=== PATIENT | female | born 1940 | race Caucasian/White ===

== ENCOUNTER 2020-05-23 09:56 | Observation (INO) | payer OTHER ==
[2020-05-23 12:02] LABS: Absolute Lymphocytes (CBC) 1.4 K/uL (0.7-4.9); Basophils % 1.1 % (0-1.3); Hematocrit 45.8 % (36.0-45.0); Lymphocytes % 27.2 % (15.3-44.8); MPV 10.8 fL (7.6-11.3); RBC Red Blood Cell Count 4.81 M/uL (3.86-4.86)
[2020-05-23 12:11] LABS: Protime INR 1.04
--- NOTE | 2020-05-23 12:23 | RAD REPORT ---
EXAM DESCRIPTION: CT - Chest Angio - 05/23/2020 12:07 pm CLINICAL HISTORY: Chest pain. Dyspnea COMPARISON: Chest Pa And Lat (2 Views) dated 05/20/2020 TECHNIQUE: CT angiogram of the pulmonary arteries was performed with MIP. All CT scans are performed using dose optimization technique as appropriate and may include automated exposure control or mA/KV adjustment according to patient size. FINDINGS: No evidence of pulmonary thromboembolism. Ascending thoracic aorta is dilated to 5 cm, compatible with aneurysm. Contrast opacification of the thoracic aorta is limited. Mild interstitial pulmonary edema suspected. Heart size is moderately prominent. Small bilateral pleural effusion. No concerning bony finding. IMPRESSION: No evidence of pulmonary thromboembolism. Mild to moderate CHF pattern seen. Ascending thoracic aortic aneurysm measuring 5 cm.
[2020-05-23 12:56] LABS: Albumin 3.8 g/dL (3.4-5.0); Bilirubin Direct 0.3 mg/dL (0-0.2); Magnesium 2.3 mg/dL (1.8-2.4); Phosphorus 4.4 mg/dL (2.5-4.9); Potassium 4.4 mmol/L (3.5-5.1); Protein, Total 7.4 g/dL (6.4-8.2); Thyroid Stimulating Hormone 0.863 uIU/mL (0.360-3.740)
[2020-05-23 13:25] LABS: Urine Appearance CLEAR; Urine Bilirubin NEGATIVE (NEG); Urine Blood TRACE (NEG); Urine Color YELLOW; Urine Glucose NEGATIVE (NEG); Urine Protein NEGATIVE (NEG); Urine Specific Gravity 1.015 (1.005-1.030); Urine Urobilinogen 0.2 mg/dL (0.2-1.0)
[2020-05-23 13:31] VITALS: BMI 26.6
[2020-05-23] MEDS: SOTALOL HCL 80 MG TAB PO SCH (13:43)
[2020-05-23 13:52] LABS: Urine Microscopic Reflex ORDER UMIC
[2020-05-23 14:32] LABS: Urine Bacteria 20-50 /HPF (<20); Urine Culture Reflex Order REFLEXED; Urine RBC <5 /HPF (NONE SEEN)
[2020-05-23] MEDS ORDERED: ALPRAZOLAM 0.25 MG TABLET PO ONE (15:32)
[2020-05-23] MEDS ORDERED: ESCITALOPRAM 20 MG TAB PO ONE (15:33)
[2020-05-23] MEDS ORDERED: ALPRAZOLAM 0.25 MG TABLET PO PRN (17:50)
--- NOTE | 2020-05-23 20:19 | CON ---
Date of Consultation: 05/23/2020 Reason For Consultation: Shortness of breath and new-onset atrial fibrillation. History Of Present Illness: An 79-year-old female with no significant cardiac history as per her rep ort, comes in from primary care physician. She was directly admitted due to atrial fibrillation and shortness of breath. She is lately for the past 2 weeks has been short of breath to minimal exertion , has orthopnea, some lower extremity edema. No chest pain. No nausea, vomiting, or diarrhea. They evaluated her by bedside. She appeared anxious and not able to rest well due to her shortness of br eath. There is no chest pain. Past Medical History: Hypertension. Medications: Refer to reconciliation sheet for detailed list. Allergies: NO KNOWN DRUG ALLERGIES. Social History: She does not smoke. Drinks on occasion. Does not use any drugs. Family History: No mention of coronary artery disease or cancer. Review of Systems: All systems reviewed, they were negative except for mentioned in the HPI. Physical Examination: Vital Signs: Revealed temperature is 97.8, heart rate 109, breathing at 17, blood pressure 136/97, s aturating 97% on room air. General: Pleasant elderly female, in no apparent distress. Head and Neck: Pupils are equal, react to light. Intact eye movements. Positive JVD. No cervical lymphadenopathy. Neck: Supple. Thyroid is not enlarged. Lungs: Crackles in both bases. No accessory muscle use or muscle retraction. Heart: Irregular, irregular. No extra sounds. Abdomen: Soft, nontender. Bowel sounds positive. No organomegaly. No masses or hernia. No rigidi ty or rebound. Extremities: There is trace edema. No clubbing, cyanosis. Intact pulses. Skin: No rash. Neurologic: Alert, awake, and oriented x3. No acute process. Investigations: BMP is 3755. TSH is 0.86, creatinine 0.81. CTA of the lungs, no PE, but there is a [id number] CHF. EKG, atrial fibrillation with rate around 110. Assessment And Plan: 1.Atrial fibrillation with rapid ventricular response. Recommend to obtain echocardiogram to evalua te the heart structure and the patient was started on Betapace. Monitor EKG daily to monitor the QT interval and agree with Eliquis for anticoagulation. Further plan and recommendations based on the e cho findings. 2.Shortness of breath, likely due to congestive heart failure. She has signs and symptoms of conges tive heart failure. Obtain an echo. Start her on Lasix 40 mg IV q.12 hours. Monitor BUN, creatinin e, electrolytes, and check 2 sets of cardiac troponins to rule out any acute myocardial injury. 3.Hypertension. Blood pressure is stable. Diurese as above. SR/MODL Voice ID: [id number] Report ID: [id number]
[2020-05-23] MEDS: POTASSIUM CL SA 10 MEQ TAB PO SCH (20:20)
[2020-05-23] MEDS: APIXABAN 5 MG TABLET PO SCH (20:20)
[2020-05-23] MEDS: FUROSEMIDE 40 MG/4 ML VIAL IV SCH (20:21)
[2020-05-23] MEDS ORDERED: PARoxetine HCL 10 MG TAB PO SCH (21:00)
--- NOTE | 2020-05-23 21:23 | P.HP ---
Certification for Inpatient Patient admitted to: Observation With expected LOS: <2 Midnights Practitioner: I am a practitioner with admitting privileges, knowledge of patient current condition, hospital course, and medical plan of care. Services: Services provided to patient in accordance with Admission requirements found in Title 42 Section 412.3 of the Code of Federal Regulations Patient History Date of Service: 05/23/20 Reason for admission: DYSPNEA History of Present Illness: MS. RESENDEZ HAS DYSPNEA FOR TWO WEEKS, FAILED TO RESPOND TO LASIX ORALLY. SHE WAS NOT ABLE TO LAY DOWN TO SLEEP SO I DECIDED TO ADMIT HER FOR CHF, PND AND WAS FOUND TO HAVE A FIB. I STARTED HER ON BETAPACE, STOPPED, ZIAC AND ALSO PUT HER ON ELIQUIS. Allergies No Known Allergies Allergy (Unverified 04/23/13 16:21) Home Medications: ALPRAZolam [Xanax*] 1 tab PO BEDTIME PRN 05/23/20 Furosemide 1 tab PO DAILY 05/23/20 PARoxetine HCL [Paxil*] 1 tab PO BEDTIME 05/23/20 Potassium Chloride 10 meq PO BID 05/23/20 - Past Medical/Surgical History Has patient received pneumonia vaccine in the past: No -: chf -: anxiety - Social History Smoking Status: Never smoker Alcohol use: Yes CD- Drugs: No Caffeine use: Yes Place of Residence: Home Review of Systems 10-point ROS is otherwise unremarkable General: Weakness, Malaise Respiratory: Shortness of Breath Physical Examination - Vital Signs Temperature: 98.1 F Blood Pressure: 128/93 Pulse: 108 Respirations: 19 Pulse Ox (%): 97 - Physical Exam General: Moderate distress HEENT: Atraumatic, PERRLA, Mucous membr. moist/pink, EOMI, Sclerae nonicteric Neck: Supple, 2+ carotid pulse no bruit, No LAD, Without JVD or thyroid abnormality, JVD distended Respiratory: Clear to auscultation bilaterally, Normal air movement Cardiovascular: Irregular heart rate/rhythm Gastrointestinal: Normal bowel sounds, No tenderness Musculoskeletal: No tenderness Integumentary: No rashes Neurological: Normal gait, Normal speech, Normal strength at 5/5 x4 extr, Normal tone, Normal affect Lymphatics: No axilla or inguinal lymphadenopathy - Studies Laboratory Data (last 24 hrs) 05/23/20 15:58: Troponin I 0.10 H 05/23/20 11:53: Sodium 137, Potassium 4.4, BUN 21 H, Creatinine 0.81, Glucose 96, Phosphorus 4.4, Magnesium 2.3, Total Bilirubin 1.0, AST 37, ALT 95 H, Alkaline Phosphatase 107 05/23/20 11:53: PT 12.3, INR 1.04, APTT 31.8 05/23/20 11:53: WBC 5.0, Hgb 15.2 H, Hct 45.8 H, Plt Count 162 Assessment and Plan - Problems (Diagnosis) (1) CHF (congestive heart failure) Current Visit: Yes Status: Chronic Plan: CHF IS RELATED TO AF IB. ECHO IN AM. MAY HAVE NORMAL EF. Qualifiers: Heart failure type: diastolic Heart failure chronicity: unspecified Qualified Code(s): I50.30 - Unspecified diastolic (congestive) heart failure (2) New onset a-fib Current Visit: Yes Status: Acute Plan: ORAL BETAPACE, ELIQUIS BID. CONSULT CARDIOLOGY. ST TEST OUTPATIENT. (3) HTN (hypertension) Current Visit: Yes Status: Acute Plan: SOTALOL AND LASIX SHOULD HELP WITH IT. STOP ZIAC. Qualifiers: Hypertension type: essential hypertension Qualified Code(s): I10 - Essential (primary) hypertension - Advance Directives Does patient have a Living Will: Yes Does patient have a Durable POA for Healthcare: Yes
[2020-05-24 05:38] LABS: Absolute Lymphocytes (CBC) 1.4 K/uL (0.7-4.9); Basophils % 0.9 % (0-1.3); Hematocrit 44.4 % (36.0-45.0); Lymphocytes % 25.8 % (15.3-44.8); MPV 10.4 fL (7.6-11.3); RBC Red Blood Cell Count 4.67 M/uL (3.86-4.86)
[2020-05-24 05:42] LABS: Magnesium 2.3 mg/dL (1.8-2.4)
[2020-05-24] MEDS: SOTALOL HCL 80 MG TAB PO SCH (07:45)
[2020-05-24] MEDS: POTASSIUM CL SA 10 MEQ TAB PO SCH (07:51)
[2020-05-24] MEDS: APIXABAN 5 MG TABLET PO SCH (07:51)
[2020-05-24] MEDS: FUROSEMIDE 40 MG/4 ML VIAL IV SCH (08:19)
--- NOTE | 2020-05-24 08:45 | ECHO ---
HEIGHT: 5 ft 5 in WEIGHT: 160 lb 0 oz DATE OF STUDY: 05/23/[address]: Tony Campos MD 2-DIMENSIONAL: YES M.MODE: YES DOPPLER: YES COLOR FLOW: YES TDS: NO PORTABLE: NO DEFINITY: NO BUBBLE STUDY: NO DIAGNOSIS: DYSPNEA CARDIAC HISTORY: CATHERIZATION: NO SURGERY: NO PROSTHETIC VALVE: NO PACEMAKER: NO MEASUREMENTS (cm) DIASTOLIC (NORMALS) SYSTOLIC (NORMALS) IVSd 0.9 (0.6-1.2) LA Diam 3.9 (1.9-4.0) LVEF 51% LVIDd 3.4 (3.5-5.7) LVIDs 2.5 (2.0-3.5) %FS 25% LVPWd 1.0 (0.6-1.2) Ao Diam (2.0-3.7) 2 DIMENSIONAL ASSESSMENT: RIGHT ATRIUM: ENLARGED LEFT ATRIUM: ENLARGED RIGHT VENTRICLE: NORMAL LEFT VENTRICLE: NORMAL TRICUSPID VALVE: MILD TR MITRAL VALVE: MODERATE MR PULMONIC VALVE: NOT WELL SEEN AORTIC VALVE: NOT WELL SEEN PERICARDIAL EFFUSION: NONE AORTIC ROOT: NOT WELL SEEN LEFT VENTRICULAR WALL MOTION: MILD GLOBAL HYPOKINESIS. DOPPLER/COLOR FLOW: SEE BELOW. COMMENTS: LOW NORMAL LEFT VENTRICULAR EJECTION FRACTION 50-55% WITH MILD GLOBAL HYPOKINESIS. MODERATE MITRAL REGURGITATION. MILD TRICUSPID REGURGITATION. BI ATRIAL ENLARGEMENT. MODERATE PULMONARY HYPERTENSION WITH RIGHT VENTRICULAR SYSTOLIC PRESSURE OF 50-55 mmHg. TECHNOLOGIST: Chiara SLOAN
[2020-05-24] MEDS ORDERED: ESCITALOPRAM 20 MG TAB PO SCH (09:00)
[2020-05-24 11:20] VITALS: O2SAT 94
--- NOTE | 2020-05-24 12:38 | P.DS ---
Admission Date: 05/23/20 Discharge Date: 05/24/20 Disposition: ROUTINE DISCHARGE Discharge Condition: FAIR Reason for Admission: DYSPNEA - Problems (1) CHF (congestive heart failure) Current Visit: Yes Status: Chronic Qualifiers: Heart failure type: diastolic Heart failure chronicity: unspecified Qualified Code(s): I50.30 - Unspecified diastolic (congestive) heart failure (2) New onset a-fib Current Visit: Yes Status: Acute (3) HTN (hypertension) Current Visit: Yes Status: Acute Qualifiers: Hypertension type: essential hypertension Qualified Code(s): I10 - Essential (primary) hypertension Brief History of Present Illness: MS. RESENDEZ HAS DYSPNEA FOR TWO WEEKS, FAILED TO RESPOND TO LASIX ORALLY. SHE WAS NOT ABLE TO LAY DOWN TO SLEEP SO I DECIDED TO ADMIT HER FOR CHF, PND AND WAS FOUND TO HAVE A FIB. I STARTED HER ON BETAPACE, STOPPED, ZIAC AND ALSO PUT HER ON ELIQUIS. Hospital Course: MS. RESENDEZ IS HERE FOR DYSPNEA, WE FOUND HER TO HAVE NEW ONSET A FIB RELATED CHF. SHE DID WELL WITH IV LASIX, BEATAPACE AND ELIQUIS. SHE HAD AN EPISODE OF CONFUSION AT NIGHT, THAT IS NOT USUAL FOR HER. SHE IS VERY EAGER TO GO HOME. WE STOPPED ZIAC. Vital Signs/Physical Exam: Temp Pulse Resp BP Pulse Ox 97.6 F 108 H 20 140/82 93 05/24/20 08:00 05/24/20 08:19 05/24/20 08:00 05/24/20 08:19 05/24/20 08:00 Laboratory Data at Discharge: WBC 5.4 K/uL (4.3-10.9) 05/24/20 04:39 Hgb 14.8 g/dL (12.0-15.0) 05/24/20 04:39 Hct 44.4 % (36.0-45.0) 05/24/20 04:39 Plt Count 150 K/uL (152-406) L 05/24/20 04:39 PT 12.3 SECONDS (9.5-12.5) 05/23/20 11:53 INR 1.04 05/23/20 11:53 APTT 31.8 SECONDS (24.3-36.9) 05/23/20 11:53 Sodium 137 mmol/L (136-145) 05/24/20 04:39 Potassium 4.0 mmol/L (3.5-5.1) 05/24/20 04:39 BUN 20 mg/dL (7-18) H 05/24/20 04:39 Creatinine 0.72 mg/dL (0.55-1.3) 05/24/20 04:39 Glucose 93 mg/dL (74-106) 05/24/20 04:39 Phosphorus 4.4 mg/dL (2.5-4.9) 05/23/20 11:53 Magnesium 2.3 mg/dL (1.8-2.4) 05/24/20 04:39 Total Bilirubin 1.0 mg/dL (0.2-1.0) 05/23/20 11:53 AST 37 U/L (15-37) 05/23/20 11:53 ALT 95 U/L (12-78) H 05/23/20 11:53 Alkaline Phosphatase 107 U/L (45-117) 05/23/20 11:53 Troponin I 0.11 ng/mL (0.0-0.045) H 05/23/20 21:38 Home Medications: ALPRAZolam [Xanax*] 1 tab PO BEDTIME PRN 05/23/20 Furosemide 1 tab PO DAILY 05/23/20 PARoxetine HCL [Paxil*] 1 tab PO BEDTIME 05/23/20 Potassium Chloride 10 meq PO BID 05/23/20 Apixaban [Eliquis] 5 mg PO BID #60 tablet 05/24/20 Sotalol HCl [Betapace*] 80 mg PO BID 6AM 6PM #60 tab 05/24/20 New Medications: Sotalol HCl [Betapace*] 80 mg PO BID 6AM 6PM #60 tab Apixaban [Eliquis] 5 mg PO BID #60 tablet Followup: Jaleel Morrison MD [ACTIVE - CAN ADMIT] - (Dr Morrison's office will call you on Wednesday to set up follow up appointment. ) Tony Campos MD [ACTIVE - CAN ADMIT] - If your Condition Changes
[2020-05-24 13:38] VITALS: BP 134/88; TEMP 98.6
--- NOTE | 2020-05-24 18:15 | EKG ---
Test Date: 2020-05-23 Test Time: 14:42:49 Design Verification Engineer: HAIM MEASUREMENT RESULTS: Intervals: Rate: 101 HI: QRSD: 74 QT: 372 QTc: 482 [place]: P: HI: QRS: 44 T: 16 INTERPRETIVE STATEMENTS: Atrial fibrillation with rapid ventricular response Septal infarct, age undetermined Abnormal ECG Compared to ECG 09/17/2014 08:53:08 Myocardial infarct finding now present Sinus rhythm no longer present Electronically Signed On 05-24-20 18:12:51 CDT by Jaleel Morrison
--- NOTE | 2020-05-24 22:01 | PN ---
Date of Progress Note: 05/24/2020 The patient was seen yesterday by Dr. Castillo, admitted by Dr. Campos. She is 79. She was admitted fo r CHF and atrial fibrillation, rate 109-120. She was placed on sotalol 80 mg b.i.d. She was placed on Eliquis. She started Lasix 40 mg IV b.i.d. This morning, patient has received only 1 dose of sot alol and she remained in atrial fibrillation at a rate of 109, but is completely asymptomatic. She d iuresed really well. She is indicating that she wants to go home. Of note, that yesterday a CT edward ogram of her chest showed a 5 cm thoracic aortic aneurysm, which need to be followed as an outpatient . Echocardiogram is still pending for today. From my standpoint, even if Ms. Simon does not conver t, I would keep her on sotalol 80 b.i.d. and Eliquis and we will plan a cardioversion in about 3 week s on Eliquis. It is unknown when her atrial fibrillation developed. I think she also needs to have an outpatient stress test to rule out coronary artery disease considering her aneurysm, her CHF, and her atrial fibrillation. I will make sure she sees me in the office in the next week or 2 after disc harge. EMANUEL/KAI Voice ID: [id number] Report ID: [id number]
[2020-05-27 18:05] LABS: Vitamin D 1,25-Dihydroxy Total 54 pg/mL (18-72); Vitamin D,1,25-OH2, D2 <8 pg/mL
== END 2020-05-24 13:20 | disposition home or self-care (01) ==
LOC: ERHOLD 09:56 → 4TH 11:08
PROVIDERS: ADMIT Internal Medicine; ATTEND Internal Medicine
DX: I11.0 Hypertensive heart disease with heart failure (principal); I50.30 Unspecified diastolic (congestive) heart failure; I48.20 Chronic atrial fibrillation, unspecified; I71.2 Thoracic aortic aneurysm, without rupture; R06.02 Shortness of breath; Z20.828 Contact with and (suspected) exposure to other viral communicable diseases; F41.9 Anxiety disorder, unspecified; Z79.899 Other long term (current) drug therapy
CPT/HCPCS: 93005; 93306; 87088; 85025 ×2; 87086; 80048 ×2; 36415 ×2; 83735 ×2; 84100; 85610; 85379; 80076; 85730; 82652; 84443; 84484 ×2; 82607; 83880; 71275; U0002; Q9967; G0379; J1940 ×2; G0378 ×3; 81003; 81015

== ENCOUNTER 2020-08-24 01:51 | Inpatient (IN) | payer OTHER ==
[2020-08-24 02:35] LABS: Absolute Lymphocytes (CBC) 1.3 K/uL (0.7-4.9); Hematocrit 43.2 % (36.0-45.0); Lymphocytes % 28.8 % (15.3-44.8); MPV 11.2 fL (7.6-11.3); RBC Red Blood Cell Count 4.46 M/uL (3.86-4.86)
[2020-08-24 02:40] LABS: Protime INR 1.37
[2020-08-24 02:54] LABS: Albumin 3.4 g/dL (3.4-5.0); Bilirubin Direct 0.3 mg/dL (0-0.2); Bilirubin Total 1.2 mg/dL (0.2-1.0); Magnesium 2.2 mg/dL (1.8-2.4); Protein, Total 6.8 g/dL (6.4-8.2); Troponin (Emerg Dept Use Only) 0.17 ng/mL (0.0-0.045)
[2020-08-24] MEDS ORDERED: FUROSEMIDE 40 MG/4 ML VIAL ONE (03:38)
[2020-08-24] MEDS ORDERED: ASPIRIN 81 MG CHEWABLE TABLET ONE (03:38)
[2020-08-24] MEDS ORDERED: METOPROLOL TARTRATE 5 MG/5 ML INJ IV ONE ×2 (04:54→05:21)
--- NOTE | 2020-08-24 05:00 | EDPHYS ---
Physician Documentation [facility] Name: Chata Simon Age: 79 yrs Sex: Female : 1940 Arrival Date: 08/24/2020 Time: 01:54 Bed 2 Private MD: ED Physician Milad Gardner HPI: 08/24 03:02 This 79 yrs old Female presents to ER via EMS with complaints of Breathing mh7 Difficulty. 03:02 The patient has shortness of breath at rest. Onset: The symptoms/episode began/occurred mh7 3 day(s) ago. Duration: The symptoms are intermittent, with no pattern. The patient's shortness of breath is aggravated by supine position, is alleviated by sitting up. Associated signs and symptoms: Pertinent negatives: chest pain, non-productive cough, productive cough, diaphoresis, dizziness, fever, hemoptysis, loss of consciousness, nausea, numbness in extremities, visual changes, vomiting. Severity of symptoms: At their worst the symptoms were moderate last night, in the emergency department the symptoms have improved moderately. Historical: - Allergies: 02:05 No Known Allergies; bb - Home Meds: 02:05 Lasix 20 mg Oral tab 1 tab 2 times per day [Active]; sotolol 80 mg BID [Active]; bb paroxetine HCl 10 mg oral tab 1 tab once daily [Active]; Eliquis 5 mg oral tab 1 tab 2 times per day [Active]; potassium chloride 10 mEq Oral TbER 1 tab once daily [Active]; - PMHx: 02:05 CHF; Atrial Fib; bb - PSHx: 02:05 Unable to obtain; bb - Immunization history:: Adult Immunizations up to date. - Social history:: Smoking status: unknown Patient uses alcohol, occasionally. Patient/guardian denies using street drugs. ROS: 03:02 Constitutional: Negative for fever, chills, and weight loss, Eyes: Negative for injury, mh7 pain, redness, and discharge, ENT: Negative for injury, pain, and discharge, Neck: Negative for injury, pain, and swelling, Cardiovascular: Negative for chest pain, palpitations, and edema, Abdomen/GI: Negative for abdominal pain, nausea, vomiting, diarrhea, and constipation, Back: Negative for injury and pain, : Negative for injury, bleeding, discharge, and swelling, MS/Extremity: Negative for injury and deformity, Skin: Negative for injury, rash, and discoloration, Neuro: Negative for headache, weakness, numbness, tingling, and seizure, Psych: Negative for depression, anxiety, suicide ideation, homicidal ideation, and hallucinations, Allergy/Immunology: Negative for hives, rash, and allergies, Endocrine: Negative for neck swelling, polydipsia, polyuria, polyphagia, and marked weight changes, Hematologic/Lymphatic: Negative for swollen nodes, abnormal bleeding, and unusual bruising. Exam: 03:02 Constitutional: This is a well developed, well nourished patient who is awake, alert, mh7 and in no acute distress. Head/Face: Normocephalic, atraumatic. Eyes: Pupils equal round and reactive to light, extra-ocular motions intact. Lids and lashes normal. Conjunctiva and sclera are non-icteric and not injected. Cornea within normal limits. Periorbital areas with no swelling, redness, or edema. Neck: Trachea midline, no thyromegaly or masses palpated, and no cervical lymphadenopathy. Supple, full range of motion without nuchal rigidity, or vertebral point tenderness. No Meningismus. Chest/axilla: Normal chest wall appearance and motion. Nontender with no deformity. No lesions are appreciated. 03:02 Abdomen/GI: Soft, non-tender, with normal bowel sounds. No distension or tympany. No guarding or rebound. No evidence of tenderness throughout. Back: No spinal tenderness. No costovertebral tenderness. Full range of motion. Skin: Warm, dry with normal turgor. Normal color with no rashes, no lesions, and no evidence of cellulitis. MS/ Extremity: Pulses equal, no cyanosis. Neurovascular intact. Full, normal range of motion. Neuro: Awake and alert, GCS 15, oriented to person, place, time, and situation. Cranial nerves II-XII grossly intact. Motor strength 5/5 in all extremities. Sensory grossly intact. Cerebellar exam normal. Normal gait. Psych: Awake, alert, with orientation to person, place and time. Behavior, mood, and affect are within normal limits. 03:02 Chest/axilla: 03:02 Cardiovascular: Rate: tachycardic, Rhythm: irregularly irregular, Pulses: no pulse deficits are appreciated, Heart sounds: normal, normal S1and S2, Edema: is not appreciated, JVD: is not appreciated. 03:02 Respiratory: the patient does not display signs of respiratory distress, Respirations: normal, Breath sounds: rhonchi, that are moderate, are scattered, Respiratory rate: 19 Vital Signs: 02:00 BP 150 / 122; Pulse 116; Resp 20 S; Temp 97.6(O); Pulse Ox 95% on R/A; Weight 69.4 kg bb (R); Height 5 ft. 5 in. (165.10 cm) (R); 02:29 BP 138 / 116; Pulse 111; Resp 19; Pulse Ox 94% ; rr5 03:50 BP 152 / 120; Pulse 127; Resp 24; Pulse Ox 90% on 2 lpm NC; rr5 04:50 BP 128 / 91; Pulse 106; Resp 22; Pulse Ox 97% on 2 lpm NC; rr5 05:06 BP 144 / 116; Pulse 125; Resp 26; Pulse Ox 100% on 2 lpm NC; rr5 05:30 BP 135 / 108; Pulse 105; Resp 28; Pulse Ox 95% on 3 lpm NC; rr5 06:40 BP 128 / 101; Pulse 110; Resp 24; Pulse Ox 100% on 3 lpm NC; rr5 07:33 BP 132 / 102; Pulse 94 MON; Resp 16; Pulse Ox 99% on 3 lpm NC; sv 02:00 Body Mass Index 25.46 (69.40 kg, 165.10 cm) bb 07:33 A fib sv MDM: 02:08 Patient medically screened. 7 04:43 Differential diagnosis: Anemia Anxiety Reaction asthma, Bronchitis CHF exacerbation, mh7 Chronic Obstructive Pulmonary Disease Myocardial Infarction pneumonia, Pneumothorax pulmonary edema. Data reviewed: vital signs, nurses notes, EMS record, lab test result(s), cardiac enzymes, CBC, electrolytes, urinalysis, EKG, radiologic studies. Data interpreted: Pulse oximetry: on room air is 94 %. Interpretation: hypoxia. Counseling: I had a detailed discussion with the patient and/or guardian regarding: the historical points, exam findings, and any diagnostic results supporting the discharge/admit diagnosis, the presence of at least one elevated blood pressure reading (>120/80) during this emergency department visit, lab results, radiology results, the need for further work-up and treatment in the hospital. Response to treatment: the patient's symptoms have mildly improved after treatment. 08/24 02:07 Order name: Basic Metabolic Panel; Complete Time: 03:13 [facility] 08/24 02:07 Order name: CBC with Diff; Complete Time: 03:13 [facility] 08/24 02:07 Order name: LFT's; Complete Time: 03:13 [facility] 08/24 02:07 Order name: Magnesium; Complete Time: 03:13 [facility] 08/24 02:07 Order name: NT PRO-BNP; Complete Time: 03:13 [facility] 08/24 02:07 Order name: PT-INR; Complete Time: 03:13 [facility] 08/24 02:07 Order name: Troponin (emerg Dept Use Only); Complete Time: 03:13 [facility] 08/24 05:10 Order name: Basic Metabolic Panel [facility] 08/24 05:10 Order name: Basic Metabolic Panel [facility] 08/24 05:10 Order name: NT PRO-BNP [facility] 08/24 05:11 Order name: NT PRO-BNP [facility] 08/24 05:11 Order name: Troponin I [facility] 08/24 05:11 Order name: Troponin I [facility] 08/24 05:11 Order name: Troponin I [facility] 08/24 02:07 Order name: XRAY Chest (1 view) [facility] 08/24 02:07 Order name: EKG; Complete Time: 02:08 [facility] 08/24 02:07 Order name: Cardiac monitoring; Complete Time: 02:28 [facility] 08/24 02:07 Order name: EKG - Nurse/Tech; Complete Time: 02:28 [facility] 08/24 02:07 Order name: IV Saline Lock; Complete Time: 02:28 [facility] 08/24 05:06 Order name: CONS Physician Consult [facility] 08/24 05:11 Order name: Consistent Carb (ADA) [address] [facility] 08/24 05:11 Order name: Low Sodium [facility] 08/24 05:18 Order name: COVID-19 lp1 08/24 07:07 Order name: CORONAVIRUS [facility] 08/24 02:07 Order name: Labs collected and sent; Complete Time: 02:28 [facility] 08/24 02:07 Order name: O2 Per Protocol; Complete Time: 02:28 [facility] 08/24 02:07 Order name: O2 Sat Monitoring; Complete Time: 02:28 mh7 Administered Medications: 03:37 Drug: Lasix 40 mg Route: IVP; Site: left forearm; rr5 04:30 Follow up: Response: No adverse reaction; Other; post lasix void rr5 03:37 Drug: Aspirin Chewable Tablet 324 mg Route: PO; rr5 04:30 Follow up: Response: No adverse reaction rr5 04:50 Drug: Lopressor 2.5 mg Route: IVP; Site: left forearm; rr5 05:20 Follow up: Response: No adverse reaction; Cardiac rhythm changed rr5 05:04 CANCELLED (Other Intervention Used): Lopressor 5 mg IVP once; Hold for SBP <100 or HR rr5 <60. 05:15 Drug: Nitro-Bid Ointment 2 % 1 inches Route: Transdermal; Site: anterior chest wall; rr5 06:10 Follow up: Response: No adverse reaction rr5 05:28 Drug: Lopressor 2.5 mg Route: IVP; Site: left forearm; rr5 06:20 Follow up: Response: No adverse reaction rr5 Disposition: 08/24/20 04:59 Hospitalization ordered by Tony Campos for Inpatient Admission. Preliminary diagnosis are CHF Exacerbation, Atrial Fibrillation with RVR. - Bed requested for Telemetry/MedSurg (Inpatient). - Status is Inpatient Admission. sv - Condition is Stable. - Problem is an acute exacerbation. - Symptoms have improved. Signatures: Dispatcher [employer] EDLizzeth Gonzalez RN RN sv Webb, Martha, RN RN mw Ballard, Brenda, RN RN bb Roque, Raymond, RN RN rr5 Milad Gardner MD MD 7 Corrections: (The following items were deleted from the chart) 05:04 05:03 Lopressor 5 mg IVP once; Hold for SBP <100 or HR <60. ordered. rr5 rr5 05:19 04:59 Hospitalization Ordered by Tony Campos MD for Inpatient Admission. Preliminary mw diagnosis is CHF Exacerbation; Atrial Fibrillation with RVR. Bed requested for Telemetry/MedSurg (Inpatient). Status is Inpatient Admission. Condition is Stable. Problem is an acute exacerbation. Symptoms have improved. mh7 07:32 05:19 08/24/2020 04:59 Hospitalization Ordered by Tony Campos MD for Inpatient sv Admission. Preliminary diagnosis is CHF Exacerbation; Atrial Fibrillation with RVR. Bed requested for [facility] ER HOLD. Status is Inpatient Admission. Condition is Stable. Problem is an acute exacerbation. Symptoms have improved. 08:10 07:32 08/24/2020 04:59 Hospitalization Ordered by Tony Campos MD for Inpatient sv Admission. Preliminary diagnosis is CHF Exacerbation; Atrial Fibrillation with RVR. Bed requested for Telemetry/MedSurg (Inpatient). Status is Inpatient Admission. Condition is Stable. Problem is an acute exacerbation. Symptoms have improved. sv
--- NOTE | 2020-08-24 05:00 | ER ---
Nurse's Notes [facility] Name: Chata Simon Age: 79 yrs Sex: Female : 1940 Arrival Date: 08/24/2020 Time: 01:54 Bed 2 Private MD: Diagnosis: CHF Exacerbation;Atrial Fibrillation with RVR Presentation: 08/24 02:00 Chief complaint: EMS states: they were toned out for report of pt having difficulty bb breathing after lying down tonight she was recently diagnosed with CHF and started on lasix by Dr Campos. Coronavirus screen: At this time, the client does not indicate any symptoms associated with coronavirus-19. Ebola Screen: No symptoms or risks identified at this time. Initial Sepsis Screen: Does the patient meet any 2 criteria? No. Patient's initial sepsis screen is negative. Does the patient have a suspected source of infection? No. Patient's initial sepsis screen is negative. Risk Assessment: Do you want to hurt yourself or someone else? Patient reports no desire to harm self or others. Onset of symptoms was August 24, 2020. 02:00 Method Of Arrival: EMS: [facility] bb 02:00 Acuity: JAMES 2 bb Triage Assessment: 02:05 General: Appears in no apparent distress. Behavior is calm, cooperative. bb 02:05 Respiratory: Onset: The symptoms/episode began/occurred gradually, the patient has mild rr5 shortness of breath. Historical: - Allergies: 02:05 No Known Allergies; bb - Home Meds: 02:05 Lasix 20 mg Oral tab 1 tab 2 times per day [Active]; sotolol 80 mg BID [Active]; bb paroxetine HCl 10 mg oral tab 1 tab once daily [Active]; Eliquis 5 mg oral tab 1 tab 2 times per day [Active]; potassium chloride 10 mEq Oral TbER 1 tab once daily [Active]; - PMHx: 02:05 CHF; Atrial Fib; bb - PSHx: 02:05 Unable to obtain; bb - Immunization history:: Adult Immunizations up to date. - Social history:: Smoking status: unknown Patient uses alcohol, occasionally. Patient/guardian denies using street drugs. Screenin:29 Abuse screen: Denies threats or abuse. Denies injuries from another. Nutritional rr5 screening: No deficits noted. Tuberculosis screening: No symptoms or risk factors identified. Fall Risk IV access (20 points). Total Boo Fall Scale indicates No Risk (0-24 pts). Assessment: 02:30 General: Appears in no apparent distress. comfortable, Behavior is calm, cooperative, rr5 appropriate for age. Pain: Denies pain. Neuro: Level of Consciousness is awake, alert, obeys commands, Oriented to person, place, time, situation. Cardiovascular: Capillary refill < 3 seconds Patient's skin is warm and dry. Rhythm is atrial fibrillation. Respiratory: Reports shortness of breath Airway is patent Respiratory effort is even, unlabored, Respiratory pattern is regular, symmetrical, GI: No signs and/or symptoms were reported involving the gastrointestinal system. : No signs and/or symptoms were reported regarding the genitourinary system. EENT: No signs and/or symptoms were reported regarding the EENT system. Derm: Skin is intact, is healthy with good turgor, Skin temperature is warm. Musculoskeletal: Circulation, motion, and sensation intact. Capillary refill < 3 seconds. 03:50 Reassessment: Patient appears in no apparent distress at this time. Patient and/or rr5 family updated on plan of care and expected duration. Pain level reassessed. Patient is alert, oriented x 3, equal unlabored respirations, skin warm/dry/pink. went to restroom voided freely post lasix output. 03:50 Reassessment: hooked to oxygen patient complaining of shortness of breath. rr5 04:20 Reassessment: Patient appears in no apparent distress at this time. Patient states rr5 symptoms have improved. 04:40 Reassessment: Patient appears in no apparent distress at this time. Patient is alert, rr5 oriented x 3, equal unlabored respirations, skin warm/dry/pink. reassess by ED provider with order made and carried out. 05:30 Reassessment: Patient is alert, oriented x 3, equal unlabored respirations, skin rr5 warm/dry/pink. came back from restroom complaining of SOB on exertion. oxygen increased to 3 liters. 06:10 Reassessment: Patient appears in no apparent distress at this time. Patient is alert, rr5 oriented x 3, equal unlabored respirations, skin warm/dry/pink. resting eyes closed breathing spontaneously with oxygen support at 3 liter. 06:50 Reassessment: awaiting for covid result. rr5 Vital Signs: 02:00 BP 150 / 122; Pulse 116; Resp 20 S; Temp 97.6(O); Pulse Ox 95% on R/A; Weight 69.4 kg bb (R); Height 5 ft. 5 in. (165.10 cm) (R); 02:29 BP 138 / 116; Pulse 111; Resp 19; Pulse Ox 94% ; rr5 03:50 BP 152 / 120; Pulse 127; Resp 24; Pulse Ox 90% on 2 lpm NC; rr5 04:50 BP 128 / 91; Pulse 106; Resp 22; Pulse Ox 97% on 2 lpm NC; rr5 05:06 BP 144 / 116; Pulse 125; Resp 26; Pulse Ox 100% on 2 lpm NC; rr5 05:30 BP 135 / 108; Pulse 105; Resp 28; Pulse Ox 95% on 3 lpm NC; rr5 06:40 BP 128 / 101; Pulse 110; Resp 24; Pulse Ox 100% on 3 lpm NC; rr5 07:33 BP 132 / 102; Pulse 94 MON; Resp 16; Pulse Ox 99% on 3 lpm NC; sv 02:00 Body Mass Index 25.46 (69.40 kg, 165.10 cm) bb 07:33 A fib sv ED Course: 01:54 Patient arrived in ED. cl3 01:55 Ty Schwartz, NICK is Primary Nurse. rr5 01:56 Milad Gardner MD is Attending Physician. mh7 02:00 Patient has correct armband on for positive identification. Placed in gown. Bed in low rr5 position. Call light in reach. Side rails up X2. youth nutritional monitor on. Pulse ox on. NIBP on. 02:03 Triage completed. bb 02:05 Arm band placed on Patient placed in an exam room, on a stretcher, on pulse oximetry. bb 02:10 EKG done, by ED staff, reviewed by Milad Gardner MD. rr5 02:20 Inserted saline lock: 20 gauge in left forearm, using aseptic technique. Blood rr5 collected. 02:30 XRAY Chest (1 view) In Process Unspecified. EDMS 04:58 Tony Campos MD is Hospitalizing Provider. mh7 05:32 No provider procedures requiring assistance completed. Patient admitted, IV remains in rr5 place. intact, No redness/swelling at site. Administered Medications: 03:37 Drug: Lasix 40 mg Route: IVP; Site: left forearm; rr5 04:30 Follow up: Response: No adverse reaction; Other; post lasix void rr5 03:37 Drug: Aspirin Chewable Tablet 324 mg Route: PO; rr5 04:30 Follow up: Response: No adverse reaction rr5 04:50 Drug: Lopressor 2.5 mg Route: IVP; Site: left forearm; rr5 05:20 Follow up: Response: No adverse reaction; Cardiac rhythm changed rr5 05:04 CANCELLED (Other Intervention Used): Lopressor 5 mg IVP once; Hold for SBP <100 or HR rr5 <60. 05:15 Drug: Nitro-Bid Ointment 2 % 1 inches Route: Transdermal; Site: anterior chest wall; rr5 06:10 Follow up: Response: No adverse reaction rr5 05:28 Drug: Lopressor 2.5 mg Route: IVP; Site: left forearm; rr5 06:20 Follow up: Response: No adverse reaction rr5 Intake: 06:43 PO: 200ml; Total: 200ml. rr5 06:43 post lasix voided freely rr5 Output: 06:43 Other: 5; Total: 0ml. rr5 06:43 post lasix voided freely rr5 Outcome: 04:59 Decision to Hospitalize by Provider. mh7 06:16 Admitted to ER Hold. Please see [facility] for further documentation. rr5 06:16 Condition: stable 06:16 Instructed on the need for admit. 08:10 Patient left the ED. sv Signatures: Dispatcher [employer] EDMS Lizzeth Katz RN RN sv Ballard, Brenda, RN RN bb Roque, Raymond, RN RN rr5 Jael Rees cl3 Milad Gardner MD MD 7 Corrections: (The following items were deleted from the chart) 07:45 07:33 BP 132 / 102; Pulse 94bpm; Monitor: A fibResp 16bpm; Pulse Ox 99% RA; sv sv
[2020-08-24] MEDS ORDERED: ONDANSETRON 4 MG/2 ML VIAL IV PRN (05:06)
[2020-08-24] MEDS ORDERED: ACETAMINOPHEN 500 MG TAB PO PRN (05:06)
[2020-08-24] MEDS ORDERED: MORPHINE 2 MG/ML SYR IV PRN (05:24)
[2020-08-24] MEDS ORDERED: NITROGLYCERIN 1 GM PKT TD ONE (05:24)
[2020-08-24 09:54] VITALS: BMI 25.4
--- NOTE | 2020-08-24 10:07 | P.HP ---
Certification for Inpatient Patient admitted to: Inpatient With expected LOS: >2 Midnights Practitioner: I am a practitioner with admitting privileges, knowledge of patient current condition, hospital course, and medical plan of care. Services: Services provided to patient in accordance with Admission requirements found in Title 42 Section 412.3 of the Code of Federal Regulations Patient History Date of Service: 08/24/20 Reason for admission: SHORT OF BREATH History of Present Illness: MS. ROSADO HAS KNOWN A FIB AND I AM NOT SURE IF SHE IS WATCHING HER DIET OR TAKING DIURETICS. SHE WILL NOW HOPEFULLY. SHE HAS DYSPNEA FOR A DAY. SHE HAS NO CHEST PAIN. Allergies No Known Allergies Allergy (Unverified 04/23/13 16:21) Home Medications: ALPRAZolam [Xanax*] 1 tab PO BEDTIME PRN 05/23/20 Furosemide 1 tab PO DAILY 05/23/20 PARoxetine HCL [Paxil*] 1 tab PO BEDTIME 05/23/20 Potassium Chloride 10 meq PO BID 05/23/20 Apixaban [Eliquis] 5 mg PO BID #60 tablet 05/24/20 Sotalol HCl [Betapace*] 80 mg PO BID 6AM 6PM #60 tab 05/24/20 - Past Medical/Surgical History Has patient received pneumonia vaccine in the past: No Diabetic: No -: CHF -: anxiety - Family History Father History Unknown: Yes Mother History Unknown: Yes - Social History Smoking Status: Former smoker Alcohol use: Yes CD- Drugs: No Caffeine use: Yes Place of Residence: Home Review of Systems 10-point ROS is otherwise unremarkable General: Weakness Respiratory: Shortness of Breath Physical Examination - Vital Signs Temperature: 96.8 F Blood Pressure: 145/92 Pulse: 101 Respirations: 16 Pulse Ox (%): 94 - Physical Exam General: Alert, In no apparent distress HEENT: Atraumatic, PERRLA, Mucous membr. moist/pink, EOMI, Sclerae nonicteric Neck: Supple, 2+ carotid pulse no bruit, No LAD, Without JVD or thyroid abnormality Respiratory: Clear to auscultation bilaterally, Normal air movement Cardiovascular: Irregular heart rate/rhythm Gastrointestinal: Normal bowel sounds, No tenderness Musculoskeletal: No tenderness Integumentary: No rashes Neurological: Normal gait, Normal speech, Normal strength at 5/5 x4 extr, Normal tone, Normal affect Lymphatics: No axilla or inguinal lymphadenopathy - Studies Laboratory Data (last 24 hrs) 08/24/20 02:20: PT 16.1 H, INR 1.37 08/24/20 02:20: WBC 4.4, Hgb 14.4, Hct 43.2, Plt Count 132 L 08/24/20 02:20: Sodium 141, Potassium 4.0, BUN 22 H, Creatinine 0.87, Glucose 99, Magnesium 2.2, Total Bilirubin 1.2 H, AST 129 H, ALT 167 H, Alkaline Phosphatase 147 H Assessment and Plan - Problems (Diagnosis) (1) Persistent atrial fibrillation Current Visit: Yes Status: Chronic Plan: ON BETAPACE AND ELIQUIS ALREADY. WILL SEE CARD. (2) CHF (congestive heart failure) Current Visit: No Status: Acute Plan: SHE HAS MOD TR, MOD AR ON RECENT ECHO WITH NORMAL EF AT 55%. DIURETICS AND KCL. IF TOLERATES WILL ADD ARB, SHE IS NOT ONE TO TAKE MEDS. Qualifiers: Heart failure type: diastolic Heart failure chronicity: unspecified Qualified Code(s): I50.30 - Unspecified diastolic (congestive) heart failure - Advance Directives Does patient have a Living Will: Yes Does patient have a Durable POA for Healthcare: Yes
[2020-08-24] MEDS: FUROSEMIDE 40 MG/4 ML VIAL IV SCH ×2 (10:17→16:39)
[2020-08-24] MEDS: POTASSIUM CL SA 10 MEQ TAB PO SCH ×2 (10:18→21:38)
[2020-08-24] MEDS ORDERED: PNEUMOCOCCAL VACCINE 0.5 ML IMVAC ONE (11:00)
--- NOTE | 2020-08-24 12:02 | RAD REPORT ---
EXAM DESCRIPTION: [place] Single View08/24/2020 2:31 am CLINICAL HISTORY: sob COMPARISON: April 2020 FINDINGS: Mild bilateral pulmonary opacities. Heart is mildly enlarged. Focal bulge right paratracheal region represents the patient's known aortic aneurysm. It appears more prominent but may simply be secondary to positioning. PA and lateral chest series is recommended
--- NOTE | 2020-08-24 12:25 | EKG ---
Test Date: 2020-08-24 Test Time: 01:59:39 Television Engineer: FIONA MEASUREMENT RESULTS: Intervals: Rate: 125 [place]: QRSD: 72 QT: 344 QTc: 496 [place]: P: KS: QRS: 20 T: 30 INTERPRETIVE STATEMENTS: Atrial fibrillation with rapid ventricular response Low voltage QRS Septal infarct, age undetermined Abnormal ECG Compared to ECG 05/23/2020 14:42:49 Low QRS voltage now present Myocardial infarct finding still present Electronically Signed On 08-24-20 12:24:11 CDT by Jaleel Morrison
[2020-08-24] MEDS ORDERED: SOTALOL HCL 80 MG TAB PO ONE ×2 (17:31→17:33)
[2020-08-24] MEDS: SOTALOL HCL 80 MG TAB PO SCH (17:32)
--- NOTE | 2020-08-24 19:05 | CON ---
Date of Consultation: 08/24/2020 Reason For Consultation: Rapid atrial fibrillation and congestive heart failure exacerbation. History Of Present Illness: Ms. Simon is an 79-year-old woman. She was admitted on 08/24/2020, mos tly with shortness of breath. She denied chest pain, fever, cough, or chills. She had some PND, ort hopnea as well as pedal edema. Denied any chest pain, nausea, vomiting, or diaphoresis. Past Medical History: Include congestive heart failure and atrial fibrillation. Allergies: NONE. Review of Systems: Negative. Social History: Negative. Family History: Noncontributory. Medications: At home include Lasix, sotalol, Eliquis, and potassium. Physical Examination: Vital Signs: She was in atrial fibrillation with a rate of 117. Her blood pressure was 115/77. She was afebrile. Her respiratory rate was 16. Her O2 saturation was 94% on 3 L of nasal cannula. General: She did not appear to be in any acute distress. HEENT: Negative. Neck: Supple without any bruit, lymphadenopathy, JVD, or thyromegaly. Chest: Some rales at the bases with some expiratory wheezing. Cardiac: Atrial fibrillation. No murmurs, gallops, or rubs. Abdomen: Benign. Extremities: Trace edema. Diagnostic Data: Creatinine was 0.87. Her white count was normal. Her INR was 1.37. Potassium was 4.0. She has slightly elevated liver function test of 129 for the AST, 167 for ALT. Her troponin w as 0.17. Her BNP was 8969. EKG showed atrial fibrillation with rapid ventricular response. Her kami st x-ray revealed mild congestive heart failure and what appeared to be an aortic aneurysm, which is old. Echocardiogram, which was done in April of 2020, revealed a low normal ejection fraction 50% to 55% with moderate mitral regurgitation, moderate pulmonary hypertension. Impression And Plan: 1.Acute on chronic diastolic congestive heart failure exacerbation. 2.Rapid atrial fibrillation. 3.Elevated liver function test. 4.Elevated troponin and BNP secondary to congestive heart failure. Ms. Simon has an appointment in my office next week. She needs to continue her sotalol, her Eliquis , her Lasix, and potassium. I think we need to increase her sotalol dose to 160 mg in the morning an d 80 mg in the evening. We should increase her Lasix dose when she goes home. When I see her in the office if she remains in atrial fibrillation, we will consider a direct current cardioversion. Ms. Simon should also have a stress test Lexiscan in the near future. I will discuss the case further w speedy Campos. EMANUEL/KAI Voice ID: [id number] Report ID: [id number]
[2020-08-24] MEDS ORDERED: PARoxetine HCL 10 MG TAB PO SCH (21:00)
[2020-08-24] MEDS: APIXABAN 5 MG TABLET PO SCH (21:38)
[2020-08-25] MEDS: SOTALOL HCL 80 MG TAB PO SCH (06:08)
[2020-08-25 06:14] LABS: Absolute Lymphocytes (CBC) 1.5 K/uL (0.7-4.9); Hematocrit 43.3 % (36.0-45.0); Lymphocytes % 33.6 % (15.3-44.8); MPV 11.3 fL (7.6-11.3); RBC Red Blood Cell Count 4.53 M/uL (3.86-4.86)
[2020-08-25 06:21] LABS: Potassium 3.6 mmol/L (3.5-5.1)
[2020-08-25 08:54] VITALS: O2SAT 97
[2020-08-25] MEDS: APIXABAN 5 MG TABLET PO SCH (09:00)
--- NOTE | 2020-08-25 09:16 | RAD REPORT ---
EXAM DESCRIPTION: RAD - Chest Single View - 08/25/2020 6:59 am CLINICAL HISTORY: Chest Pain COMPARISON: August 24 portable chest, May 23 CT chest TECHNIQUE: AP portable chest image was obtained 08/25/2020 6:59 am . FINDINGS: Prominent interstitial pattern is less pronounced than on the prior examination. Inspirato ry effort is improved. Mild cardiomegaly is present. Vasculature within normal limits. Enlarged and t ortuous vascularity of accentuates the mediastinum. These findings are not clearly different from the April CT chest. Bilateral breast implants increased lower lung field density. No measurable pleural e ffusion and no pneumothorax. No acute bony abnormality seen. No acute aortic findings suspected. IMPRESSION: No new mass or consolidations seen. Lung mendiola are better aerated with decreased interstitial opacification. Mild cardiomegaly remains.
[2020-08-25] MEDS: FUROSEMIDE 40 MG/4 ML VIAL IV SCH (09:29)
[2020-08-25] MEDS: POTASSIUM CL SA 10 MEQ TAB PO SCH (09:30)
[2020-08-25 12:25] VITALS: BP 94/54; TEMP 97.6
--- NOTE | 2020-08-25 16:51 | P.DS ---
Admission Date: 08/24/20 Discharge Date: 08/25/20 Disposition: ROUTINE DISCHARGE Discharge Condition: FAIR Reason for Admission: SHORT OF BREATH - Problems (1) Persistent atrial fibrillation Status: Chronic (2) CHF (congestive heart failure) Status: Acute Qualifiers: Heart failure type: diastolic Heart failure chronicity: unspecified Qualified Code(s): I50.30 - Unspecified diastolic (congestive) heart failure Brief History of Present Illness: MS. ROSADO HAS KNOWN A FIB AND I AM NOT SURE IF SHE IS WATCHING HER DIET OR TAKING DIURETICS. SHE WILL NOW HOPEFULLY. SHE HAS DYSPNEA FOR A DAY. SHE HAS NO CHEST PAIN. ELIUD IS STABLE. HAS IMPROVED WELL HER BP IS LOW NORMAL. DR. VALLEJO WANTS MORE SOTALOL BUT WILL HAVE TO RAISE LATER. SHE IS ON 40 MG LASIX AND KCL. WILL FU IN 10 DAYS. Vital Signs/Physical Exam: Temp Pulse Resp BP Pulse Ox 97.6 F 95 H 16 94/54 L 95 08/25/20 12:00 08/25/20 12:00 08/25/20 12:00 08/25/20 12:00 08/25/20 12:00 Laboratory Data at Discharge: WBC 4.5 K/uL (4.3-10.9) 08/25/20 05:40 Hgb 14.8 g/dL (12.0-15.0) 08/25/20 05:40 Hct 43.3 % (36.0-45.0) 08/25/20 05:40 Plt Count 132 K/uL (152-406) L 08/25/20 05:40 PT 16.1 SECONDS (9.5-12.5) H 08/24/20 02:20 INR 1.37 08/24/20 02:20 Sodium 140 mmol/L (136-145) 08/25/20 05:40 Potassium 3.6 mmol/L (3.5-5.1) 08/25/20 05:40 BUN 23 mg/dL (7-18) H 08/25/20 05:40 Creatinine 0.76 mg/dL (0.55-1.3) 08/25/20 05:40 Glucose 94 mg/dL (74-106) 08/25/20 05:40 Magnesium 2.2 mg/dL (1.8-2.4) 08/24/20 02:20 Total Bilirubin 1.2 mg/dL (0.2-1.0) H 08/24/20 02:20 AST 129 U/L (15-37) H 08/24/20 02:20 ALT 167 U/L (12-78) H 08/24/20 02:20 Alkaline Phosphatase 147 U/L (45-117) H 08/24/20 02:20 Troponin I 0.15 ng/mL (0.0-0.045) H 08/24/20 13:34 Home Medications: PARoxetine HCL [Paxil*] 1 tab PO BEDTIME 05/23/20 Potassium Chloride 10 meq PO BID 05/23/20 Apixaban [Eliquis] 5 mg PO BID #60 tablet 05/24/20 Sotalol HCl [Betapace*] 80 mg PO BID 6AM 6PM #60 tab 05/24/20 Furosemide 40 mg PO DAILY #90 tablet 08/25/20 New Medications: Furosemide 40 mg PO DAILY #90 tablet Followup: Tony Campos MD [ACTIVE - CAN ADMIT] -
== END 2020-08-25 13:58 | disposition home or self-care (01) | DRG 308 ==
LOC: ER 01:51 → ERHOLD 05:14 → 2ND 07:36
PROVIDERS: ADMIT Internal Medicine; ATTEND Internal Medicine
DX: I48.19 Other persistent atrial fibrillation (principal); I50.33 Acute on chronic diastolic (congestive) heart failure; R79.89 Other specified abnormal findings of blood chemistry; Z79.01 Long term (current) use of anticoagulants; Z87.891 Personal history of nicotine dependence; Z79.899 Other long term (current) drug therapy; Z20.828 Contact with and (suspected) exposure to other viral communicable diseases
CPT/HCPCS: 36415; 71045; 80048; 80076; 83735; 83880; 84132; 84484; 85025; 85610; 93005; 96374; 96375; 99285; J1940; U0003

== ENCOUNTER 2021-02-15 10:37 | Inpatient (IN) | payer OTHER ==
[2021-02-15 11:25] LABS: Absolute Lymphocytes (CBC) 1.3 K/uL (0.7-4.9); Basophils % 1.2 % (0-1.3); Lymphocytes % 17.5 % (15.3-44.8); MPV 10.3 fL (7.6-11.3); RBC Red Blood Cell Count 4.51 M/uL (3.86-4.86)
[2021-02-15] MEDS ORDERED: ASPIRIN 81 MG CHEWABLE TABLET ONE (11:26)
[2021-02-15] MEDS ORDERED: METOPROLOL TAR 25 MG TAB ONE (11:26)
[2021-02-15] MEDS ORDERED: METOPROLOL TARTRATE 5 MG/5 ML INJ IV ONE (11:26)
[2021-02-15] MEDS ORDERED: ENOXAPARIN 80 MG/0.8 ML SQ ONE (11:26)
--- NOTE | 2021-02-15 11:28 | RAD REPORT ---
EXAM DESCRIPTION: RAD - Chest Single View - 02/15/2021 11:22 am CLINICAL HISTORY: SOB Chest pain. COMPARISON: Chest Single View dated 08/25/2020; Chest Single View dated 08/24/2020; Chest Pa And Lat ( 2 Views) dated 05/20/2020 FINDINGS: Portable technique limits examination quality. [id number] bilateral interstitial lung infiltrates are seen. The heart is moderately enlarged i n size. No displaced fractures. IMPRESSION: Mild to moderate CHF.
[2021-02-15 11:34] LABS: Protime INR 1.55
[2021-02-15 11:46] LABS: Albumin 3.5 g/dL (3.4-5.0); Bilirubin Direct 0.6 mg/dL (0-0.2); Bilirubin Total 2.2 mg/dL (0.2-1.0); Magnesium 2.2 mg/dL (1.8-2.4); Potassium 3.9 mmol/L (3.5-5.1); Troponin (Emerg Dept Use Only) 0.22 ng/mL (0.0-0.045)
[2021-02-15] MEDS ORDERED: FUROSEMIDE 40 MG/4 ML VIAL ONE (12:33)
--- NOTE | 2021-02-15 12:41 | RAD REPORT ---
EXAM DESCRIPTION: CT - Chest For Pe Angio - 02/15/2021 12:28 pm CLINICAL HISTORY: Chest pain. SOB COMPARISON: Chest Angio dated 05/23/2020 TECHNIQUE: CT angiogram of the pulmonary arteries was performed with MIP. All CT scans are performed using dose optimization technique as appropriate and may include automated exposure control or mA/KV adjustment according to patient size. FINDINGS: No evidence of pulmonary thromboembolism. No acute aortic finding demonstrated. [id number] interstitial pulmonary edema seen. Moderate cardiomegaly. Small bilateral pleural, slightly greater on the right. No concerning bony finding. IMPRESSION: No evidence of pulmonary thromboembolism. Mild to moderate CHF.
--- NOTE | 2021-02-15 13:10 | RAD REPORT ---
EXAM DESCRIPTION: US - Abdomen Exam Limited - 02/15/2021 12:52 pm CLINICAL HISTORY: elevated liver enzymes Abdominal pain COMPARISON: No comparisons FINDINGS: The gallbladder demonstrates no gallstones. Gallbladder wall is thickened to 5 mm. The com mon bile duct is normal measuring 3 mm. The liver demonstrates no findings of intrahepatic biliary dilatation. IMPRESSION: Thickened gallbladder wall seen without stones. This can be seen in cases chronic anny cystitis, underlying liver disease or hypoalbuminemia.
--- NOTE | 2021-02-15 14:16 | EDPHYS ---
Physician Documentation [facility] Name: Chata Simon Age: 80 yrs Sex: Female : 1940 Arrival Date: 02/15/2021 Time: 10:40 Bed 3 Private MD: Tony Campos V ED Physician Mega Gipson HPI: 02/15 11:05 This 80 yrs old Female presents to ER via Ambulatory with complaints of cp Shortness Of Breath. 11:05 The patient has shortness of breath at rest. Onset: The symptoms/episode began/occurred cp 1 week(s) ago. Duration: The symptoms are continuous, and are steadily getting worse. 11:05 Associated signs and symptoms: Pertinent negatives: chest pain, productive cough, cp diaphoresis, dizziness, fever, hemoptysis. 11:05 Severity of symptoms: in the emergency department the symptoms are unchanged despite cp home interventions. Historical: - Allergies: 10:47 No Known Allergies; ca1 - PMHx: 10:47 Atrial Fib; CHF; ca1 - PSHx: 10:47 Unable to obtain; ca1 - Immunization history:: Pneumococcal vaccine is not up to date, Flu vaccine is not up to date. - Social history:: Smoking status: Patient denies any tobacco usage or history of. ROS: 11:10 Constitutional: Negative for body aches, chills, fever, poor PO intake. cp 11:10 Eyes: Negative for injury, pain, redness, and discharge. cp 11:10 ENT: Negative for ear pain, sore throat, difficulty swallowing, difficulty handling secretions. 11:10 Cardiovascular: Positive for palpitations, Negative for chest pain. 11:10 Respiratory: Positive for shortness of breath, at rest. Negative for cough, wheezing. 11:10 Abdomen/GI: Negative for abdominal pain, nausea, vomiting, and diarrhea, constipation. 11:10 Back: Negative for pain at rest, pain with movement. 11:10 Neuro: Negative for altered mental status, dizziness, headache, syncope, weakness. 11:10 All other systems are negative. Exam: 11:05 ECG was reviewed by the Attending Physician. cp 11:15 Constitutional: The patient appears in no acute distress, alert, awake, cp non-diaphoretic, non-toxic, well developed, well nourished. 11:15 Head/Face: Normocephalic, atraumatic. cp 11:15 Eyes: Periorbital structures: appear normal, Pupils: equal, round, and reactive to cp light and accomodation, Extraocular movements: intact throughout, Conjunctiva: normal, no exudate, no injection, Sclera: no appreciated abnormality, Lids and lashes: appear normal, bilaterally. 11:15 ENT: External ear(s): are unremarkable, Nose: is normal, Mouth: Lips: moist, Oral cp mucosa: moist, Posterior pharynx: Airway: no evidence of obstruction, patent. 11:15 Neck: ROM/movement: is normal, is supple, without pain, no range of motions limitations, no nuchal rigidity. 11:15 Chest/axilla: Inspection: normal, Palpation: is normal, no crepitus, no tenderness. 11:15 Cardiovascular: Rate: tachycardic, Rhythm: irregular, Edema: is not appreciated, JVD: is not appreciated. 11:15 Respiratory: the patient does not display signs of respiratory distress, Respirations: normal, no use of accessory muscles, no retractions, no splinting, no tachypnea, labored breathing, is not present. 11:15 Abdomen/GI: Inspection: abdomen appears normal, Palpation: abdomen is soft and non-tender, in all quadrants, rebound tenderness, is not appreciated, voluntary guarding, is not appreciated, involuntary guarding, is not appreciated. 11:15 Back: pain, is absent, ROM is normal. 11:15 Neuro: Orientation: to person, place \T\ time. Mentation: is normal, Cerebellar function: is grossly normal, Motor: moves all fours, strength is normal, Sensation: is normal. Vital Signs: 10:46 BP 137 / 105; Pulse 125; Resp 20 S; Temp 97.2(TE); Pulse Ox 98% on R/A; Weight 68.04 kg ca1 (R); Height 5 ft. 5 in. (165.10 cm) (R); Pain 0/10; 11:15 BP 148 / 95; Pulse 115; Resp 26; Pulse Ox 97% on 2 lpm NC; bp 13:00 BP 131 / 96; Pulse 105; Resp 21; Pulse Ox 98% ; bp 14:32 BP 156 / 100; Pulse 109; Resp 19; Pulse Ox 99% ; bp 15:42 BP 148 / 90; Pulse 84; Resp 17; Pulse Ox 96% on 2 lpm NC; bp 10:46 Body Mass Index 24.96 (68.04 kg, 165.10 cm) ca1 MDM: 11:01 Patient medically screened. cp 11:30 Differential diagnosis: Anemia CHF exacerbation, Myocardial Infarction pneumonia, cp Pneumothorax pulmonary edema, Pulmonary Embolism Unstable Angina. 13:45 Data reviewed: vital signs, nurses notes, lab test result(s), EKG, radiologic studies, cp CT scan, plain films, ultrasound, and as a result, I will admit patient. 13:45 Test interpretation: by ED physician or midlevel provider: ECG, plain radiologic cp studies. 14:05 Physician consultation: Ranjeet Albaniajs was called at 14:05, was contacted at 14:05, regarding admission, to the telemetry unit. patient's condition, and will see patient in ED, shortly. 02/15 11:01 Order name: Basic Metabolic Panel 02/15 11:01 Order name: CBC with Diff cp 02/15 11:01 Order name: LFT's cp 02/15 11:01 Order name: Magnesium cp 02/15 11:01 Order name: NT PRO-BNP 02/15 11:01 Order name: PT-INR cp 02/15 11:01 Order name: Troponin (emerg Dept Use Only); Complete Time: 11:47 cp 02/15 11:47 Interpretation: Abnormal: TROPED 0.22. cp 02/15 11:01 Order name: D-Dimer; Complete Time: 11:47 cp 02/15 11:01 Order name: Basic Metabolic Panel; Complete Time: 11:47 EDNV 02/15 11:01 Order name: CBC with Automated Diff; Complete Time: 11:47 EDMS 02/15 11:01 Order name: Liver (Hepatic) Function; Complete Time: 11:47 EDMS 02/15 13:41 Interpretation: Normal except: AST 95; ALT 165; ALK 138; BILIT 2.2; BILID 0.6; A/G 1.0. cp 02/15 11:01 Order name: Magnesium; Complete Time: 11:47 EDMS 02/15 11:01 Order name: NT PRO-BNP; Complete Time: 11:47 EDMS 02/15 11:01 Order name: XRAY Chest (1 view); Complete Time: 11:47 cp 02/15 11:01 Order name: EKG; Complete Time: 11:02 cp 02/15 11:01 Order name: Cardiac monitoring; Complete Time: 11:03 cp 02/15 11:01 Order name: EKG - Nurse/Tech; Complete Time: 11:02 cp 02/15 11:01 Order name: IV Saline Lock; Complete Time: 11:03 cp 02/15 11:01 Order name: Labs collected and sent; Complete Time: 11:24 cp 02/15 11:01 Order name: O2 Per Protocol; Complete Time: 11: cp 02/15 11:01 Order name: Protime (+INR); Complete Time: 11:47 EDMS 02/15 11:52 Order name: CT Chest For PE Angio; Complete Time: 13:04 cp 02/15 13:04 Interpretation: Report reviewed. 02/15 11:53 Order name: US Abdomen Limited: RUQ; Complete Time: 13:35 cp 02/15 13:28 Order name: SARS-COV-2 RT PCR; Complete Time: 13:35 EDMS 02/15 13:42 Interpretation: Results reviewed. 02/15 11:01 Order name: O2 Sat Monitoring; Complete Time: 11:03 cp EC:05 Rate is 120 beats/min. Rhythm is irregular. QRS interval is normal. QT interval is cp normal. Interpreted by me. Reviewed by me. Administered Medications: 11:15 Drug: Metoprolol 25 mg Route: PO; bp 15:44 Follow up: Response: No adverse reaction bp 11:15 Drug: Metoprolol 5 mg Route: IVP; Site: right forearm; bp 15:44 Follow up: Response: No adverse reaction bp 11:15 Drug: Aspirin Chewable Tablet 324 mg Route: PO; bp 15:44 Follow up: Response: No adverse reaction bp 11:15 Drug: Lovenox 1 mg/kg Route: Sub-Q; Site: right lower abdomen; bp 13:29 Follow up: Response: No adverse reaction bp 12:10 Drug: Lasix 40 mg Route: IVP; Site: right forearm; bp 13:29 Follow up: Response: No adverse reaction bp Disposition: 02/16 01:22 Co-signature as Attending Physician, Mega Gipson MD I agree with the assessment and jean claude plan of care. Disposition: 02/15/21 14:14 Hospitalization ordered by Tony Campos for Inpatient Admission. Preliminary diagnosis are Unspecified atrial fibrillation, Unspecified combined systolic (congestive) and diastolic (congestive) heart failure, Non-ST elevation (NSTEMI) myocardial infarction. - Bed requested for Telemetry/MedSurg (Inpatient). - Status is Inpatient Admission. bp - Condition is Stable. - Problem is new. - Symptoms have improved. Signatures: Dispatcher [employer] EDNV Mega Gipson MD MD cha Page, Corey, PA PA cp Alan Lombardi RN RN bp Kelly Beasley eb Nancy Mcintyre RN RN ca1 Corrections: (The following items were deleted from the chart) 02/15 12:48 11:01 CORONAVIRUS+MR.LAB.BRZ ordered. [facility] 15:00 14:14 Hospitalization Ordered by Tony Campos MD for Inpatient Admission. Preliminary eb diagnosis is Unspecified atrial fibrillation; Unspecified combined systolic (congestive) and diastolic (congestive) heart failure; Non-ST elevation (NSTEMI) myocardial infarction. Bed requested for Telemetry/MedSurg (Inpatient). Status is Inpatient Admission. Condition is Stable. Problem is new. Symptoms have improved. cp 15:56 15:00 02/15/2021 14:14 Hospitalization Ordered by Tony Campos MD for Inpatient bp Admission. Preliminary diagnosis is Unspecified atrial fibrillation; Unspecified combined systolic (congestive) and diastolic (congestive) heart failure; Non-ST elevation (NSTEMI) myocardial infarction. Bed requested for Telemetry/MedSurg (Inpatient). Status is Inpatient Admission. Condition is Stable. Problem is new. Symptoms have improved. eb
--- NOTE | 2021-02-15 14:16 | ER ---
Nurse's Notes [facility] Name: Chata Simon Age: 80 yrs Sex: Female : 1940 Arrival Date: 02/15/2021 Time: 10:40 Bed 3 Private MD: Tony Campos V Diagnosis: Unspecified atrial fibrillation;Unspecified combined systolic (congestive) and diastolic (congestive) heart failure;Non-ST elevation (NSTEMI) myocardial infarction Presentation: 02/15 10:46 Chief complaint: Patient states: SOB started some time last week. Denies HX COPD, ca1 Asthma. Denies cough. Coronavirus screen: Client denies travel out of the [place] in the last 14 days. shortness of breath, Client presents with at least one sign or symptom that may indicate coronavirus-19. Standard/surgical mask placed on the client. Provider contacted for isolation considerations. Ebola Screen: Patient negative for fever greater than or equal to 101.5 degrees Fahrenheit, and additional compatible Ebola Virus Disease symptoms Patient denies exposure to infectious person. Patient denies travel to an Ebola-affected area in the 21 days before illness onset. No symptoms or risks identified at this time. Initial Sepsis Screen: Does the patient meet any 2 criteria? No. Patient's initial sepsis screen is negative. Does the patient have a suspected source of infection? No. Patient's initial sepsis screen is negative. Risk Assessment: Do you want to hurt yourself or someone else? Patient reports no desire to harm self or others. Onset of symptoms was February 15, 2021. 10:46 Method Of Arrival: Ambulatory ca1 10:46 Acuity: JAMES 2 ca1 Triage Assessment: 10:50 General: Appears in no apparent distress. comfortable, Behavior is cooperative, bp appropriate for age, anxious. Pain: Denies pain. EENT: No deficits noted. Neuro: No deficits noted. Cardiovascular: Rhythm is atrial fibrillation with rapid ventricular response. Respiratory: Reports shortness of breath Onset: The symptoms/episode began/occurred this morning, the patient has mild shortness of breath. GI: No signs and/or symptoms were reported involving the gastrointestinal system. : No signs and/or symptoms were reported regarding the genitourinary system. Derm: No deficits noted. Musculoskeletal: No deficits noted. Historical: - Allergies: 10:47 No Known Allergies; ca1 - PMHx: 10:47 Atrial Fib; CHF; ca1 - PSHx: 10:47 Unable to obtain; ca1 - Immunization history:: Pneumococcal vaccine is not up to date, Flu vaccine is not up to date. - Social history:: Smoking status: Patient denies any tobacco usage or history of. Screenin:50 Abuse screen: Denies threats or abuse. Denies injuries from another. Nutritional bp screening: No deficits noted. Tuberculosis screening: No symptoms or risk factors identified. Fall Risk None identified. Assessment: 10:50 General: SEE TRIAGE NOTE. bp 13:00 Reassessment: No changes from previously documented assessment. Patient and/or family bp updated on plan of care and expected duration. Pain level reassessed. Patient is alert, oriented x 3, equal unlabored respirations, skin warm/dry/pink. ALL CURRENT ORDERS COMPLETED. 14:30 Reassessment: ADMIT INITIATED. Cardiovascular: Rhythm is atrial fibrillation. bp Respiratory: Airway is patent Respiratory effort is even, labored, Breath sounds are coarse bilaterally. 15:43 Reassessment: ADMIT COMPLETED, REPORT TO WHITNEY ROMERO FOR RM 207. bp Vital Signs: 10:46 BP 137 / 105; Pulse 125; Resp 20 S; Temp 97.2(TE); Pulse Ox 98% on R/A; Weight 68.04 kg ca1 (R); Height 5 ft. 5 in. (165.10 cm) (R); Pain 0/10; 11:15 BP 148 / 95; Pulse 115; Resp 26; Pulse Ox 97% on 2 lpm NC; bp 13:00 BP 131 / 96; Pulse 105; Resp 21; Pulse Ox 98% ; bp 14:32 BP 156 / 100; Pulse 109; Resp 19; Pulse Ox 99% ; bp 15:42 BP 148 / 90; Pulse 84; Resp 17; Pulse Ox 96% on 2 lpm NC; bp 10:46 Body Mass Index 24.96 (68.04 kg, 165.10 cm) ca1 ED Course: 10:40 Patient arrived in ED. am2 10:40 Tony Campos MD is Private Physician. am2 10:47 Triage completed. ca1 10:47 Arm band placed on right wrist. ca1 10:50 Patient has correct armband on for positive identification. Bed in low position. Call bp light in reach. Side rails up X2. 10:53 Mega Olsen PA is PHCP. cp 10:53 Mega Gipson MD is Attending Physician. cp 11:02 Alan Lombardi, RN is Primary Nurse. bp 11:03 EKG done, by ED staff, reviewed by Mega CARDONA. em1 11:15 Inserted saline lock: 20 gauge in right forearm, using aseptic technique. Blood bp collected. 11:22 XRAY Chest (1 view) In Process Unspecified. EDMS 12:28 CT Chest For PE Angio In Process Unspecified. EDMS 12:52 US Abdomen Limited: RUQ In Process Unspecified. EDMS 14:13 Tony Campos MD is Hospitalizing Provider. cp 15:44 No provider procedures requiring assistance completed. Patient admitted, IV remains in bp place. Administered Medications: 11:15 Drug: Metoprolol 25 mg Route: PO; bp 15:44 Follow up: Response: No adverse reaction bp 11:15 Drug: Metoprolol 5 mg Route: IVP; Site: right forearm; bp 15:44 Follow up: Response: No adverse reaction bp 11:15 Drug: Aspirin Chewable Tablet 324 mg Route: PO; bp 15:44 Follow up: Response: No adverse reaction bp 11:15 Drug: Lovenox 1 mg/kg Route: Sub-Q; Site: right lower abdomen; bp 13:29 Follow up: Response: No adverse reaction bp 12:10 Drug: Lasix 40 mg Route: IVP; Site: right forearm; bp 13:29 Follow up: Response: No adverse reaction bp Outcome: 14:14 Decision to Hospitalize by Provider. cp 15:43 Admitted to Tele accompanied by tech, via wheelchair, room 207, with oxygen, Report bp called to WHITNEY ROMERO 15:43 Condition: stable 15:43 Instructed on the need for admit. 15:56 Patient left the ED. bp Signatures: Dispatcher [employer] EDMS Jason Fernando em1 Mega Olsen PA PA cp Catina Mathew am2 Alan Lombardi, RN RN bp Nancy Mcintyre RN RN ca1
--- NOTE | 2021-02-15 15:16 | P.HP ---
Certification for Inpatient Patient admitted to: Inpatient With expected LOS: >2 Midnights Patient will require the following post-hospital care: None Practitioner: I am a practitioner with admitting privileges, knowledge of patient current condition, hospital course, and medical plan of care. Services: Services provided to patient in accordance with Admission requirements found in Title 42 Section 412.3 of the Code of Federal Regulations Patient History Date of Service: 02/15/21 Primary Care Provider: Dr. Campos(I am covering for him) Reason for admission: SOB, CP History of Present Illness: 80-year-old female with history of atrial fibrillation on chronic anti coagulation therapy, diastolic CHF, and depression. Patient presented with increasing shortness of breath and chest pain. Patient does not recall her home medications. Patient is not on a fluid restriction at home. Over the last day she has been having some increasing shortness of breath. No significant pitting edema noted. She denies any fever, chills, nausea vomiting. She also reported some chest pain. She came to the ER for further evaluation. In the ER patient was evaluated. Patient found to have atrial fibrillation with rate around 120. Blood pressure slightly elevated. Patient was given metoprolol 25 mg orally and 5 mg IV. On lab white count 7.4, hemoglobin 14. Platelet count 153. Sodium 138, potassium 3.9. BN of 22, creatinine 0.69 with a GFR of 82. Glucose 101. Total bili room 2.2, direct bilirubin 0.6. AST 95, ALT 165. Alk- phos 138. Troponin 0.22 with a BNP greater than 14,000. COVID test negative. Chest x-ray shows CHF. CT scan shows no pulmonary embolism. Evidence of congestive heart failure noted. Abdominal ultrasound showed thickened gallbladder wall but no common bile duct dilation or intrahepatic dilation. Patient admitted for further evaluation and treatment. When I saw the patient ER, patient appeared comfortable. Some shortness of breath still noted. Patient does not recall her current medications. Patient appears to be non compliant with fluid restriction and possibly diuretic therapy. Patient last seen in the hospital July of 2020. Similar episode of CHF and AFib noted. Allergies No Known Allergies Allergy (Unverified 04/23/13 16:21) Home medications list reviewed: Yes Home Medications: PARoxetine HCL [Paxil*] 1 tab PO BEDTIME 05/23/20 Potassium Chloride 10 meq PO BID 05/23/20 Apixaban [Eliquis] 5 mg PO BID #60 tablet 05/24/20 Sotalol HCl [Betapace*] 80 mg PO BID 6AM 6PM #60 tab 05/24/20 Furosemide 40 mg PO DAILY #90 tablet 08/25/20 - Past Medical/Surgical History Diabetic: No -: Diastolic CHF -: Depression with anxiety -: Atrial fibrillation on chronic anti coagulation therapy Past Surgical History: Reviewed- Non-Contributory Psychosocial/ Personal History: Patient is . - Family History Family History: Reviewed- Non-Contributory - Social History Smoking Status: Never smoker Alcohol use: Yes CD- Drugs: No Caffeine use: Yes Place of Residence: Home Review of Systems General: As per HPI Eyes: Unremarkable ENT: Unremarkable Respiratory: Shortness of Breath, SOB with Excertion, As per HPI Cardiovascular: Chest Pain, As per HPI Gastrointestinal: Unremarkable Musculoskeletal: Unremarkable Integumentary: Unremarkable Neurological: Unremarkable Lymphatics: Unremarkable Physical Examination - Physical Exam General: Alert, In no apparent distress, Oriented x3, Cooperative HEENT: Atraumatic Neck: Supple Respiratory: Crackles/rales (Crackles to the bases) Cardiovascular: Irregular heart rate/rhythm (Atrial fibrillation rate around 108-110) Gastrointestinal: Normal bowel sounds, Soft and benign, Non-distended, No ascites, No tenderness, No masses, No rebound, No guarding Musculoskeletal: No erythema, No tenderness, No warmth Integumentary: No tenderness/swelling, No erythema, No warmth, No cyanosis Neurological: Normal speech, Normal strength at 5/5 x4 extr, Normal tone, Normal affect - Studies Laboratory Data (last 24 hrs) 02/15/21 11:15: PT 17.9 H, INR 1.55 02/15/21 11:15: WBC 7.40, Hgb 14.7, Hct 44.0, Plt Count 153 02/15/21 11:15: Sodium 138, Potassium 3.9, BUN 22 H, Creatinine 0.69, Glucose 101, Magnesium 2.2, Total Bilirubin 2.2 H, AST 95 H, ALT 165 H, Alkaline Phosphatase 138 H Assessment and Plan - Plan Impression: Chest pain, dyspnea secondary to acute on chronic diastolic CHF Atrial fibrillation on chronic anti Coagulation therapy with RVR Liver function likely related to CHF Elevated troponin and elevated BNP likely ischemic demand related to CHF Depression with anxiety Plan: Chest pain, dyspnea secondary to acute on chronic diastolic CHF: Patient will be admitted for further evaluation and treatment. Will start IV Lasix 20 mg 1 pill twice daily. Will continue with her Betapace at 80 mg 1 pill twice daily. Will need to consider adjustment in medication if with accelerated heart rate. Will also continue with Eliquis 5 mg 1 pill twice daily. Need to obtain and verify home medications. Compliance will be addressed in detail. Continue with 1500 cc per day fluid restriction. Recheck chest x-ray tomorrow. Maintain sats above 93%. Will obtain echocardiogram to further evaluate. Patient may require home oxygen at discharge. Will check to see if patient qualifies. Anticipate improvement with medication and compliance. Likely discharge in the next 48 hr. PCP-Dr. Campos will resume care tomorrow. I am covering him today. Atrial fibrillation on chronic anti Coagulation therapy with RVR: Resume Betapace 80 mg 1 pill twice daily. Cardiology consulted. May need to consider increasing medication. Continue Eliquis 5 mg 1 pill twice daily. Continue IV Lasix. Liver function likely related to CHF: Continue IV Lasix. Will monitor closely. Will send for hepatitis panel. Elevated troponin and elevated BNP likely ischemic demand related to CHF: Will monitor cardiac enzymes. Continue IV Lasix. Continue other home medication including Betapace, Eliquis. Cardiology consulted to further evaluate. Depression with anxiety: Restart home medication. Discharge Plan: Home Plan to discharge in: 48 Hours - Advance Directives Does patient have a Living Will: Yes Does patient have a Durable POA for Healthcare: Yes - Code Status/Comfort Care Code Status Assessed: Yes (patient is full code) Time Spent Managing Pts Care (In Minutes): 55
[2021-02-15] MEDS ORDERED: ACETAMINOPHEN 500 MG TAB PO PRN (16:07)
[2021-02-15] MEDS ORDERED: ONDANSETRON 4 MG/2 ML VIAL IV PRN (16:07)
[2021-02-15] MEDS: FUROSEMIDE 20 MG/ 2ML VIAL IV SCH (17:20)
[2021-02-15] MEDS: SOTALOL HCL 80 MG TAB PO SCH (17:24)
[2021-02-15 19:56] LABS: CKMB Creatine Kinase MB 1.6 ng/mL (0.3-3.6); Troponin I 0.19 ng/mL (0.0-0.045)
[2021-02-15 19:59] LABS: Urine Appearance CLEAR; Urine Bilirubin NEGATIVE (NEG); Urine Blood 1+ (NEG); Urine Color YELLOW; Urine Glucose NEGATIVE (NEG); Urine Protein NEGATIVE (NEG); Urine Specific Gravity 1.025 (1.005-1.030); Urine Urobilinogen 0.2 mg/dL (0.2-1.0); Urine pH 5.5 (5.0-7.0)
[2021-02-15 20:09] LABS: Urine Microscopic Reflex ORDER UMIC
[2021-02-15] MEDS ORDERED: APIXABAN 5 MG TABLET PO SCH (21:00)
[2021-02-15] MEDS ORDERED: POTASSIUM CL SA 10 MEQ TAB PO ONE (21:00)
[2021-02-15 21:09] LABS: Urine Bacteria <20 /HPF (<20); Urine RBC <5 /HPF (NONE SEEN); Urine Urothelial Cells <5 /HPF (NONE SEEN)
[2021-02-16 04:36] LABS: Absolute Lymphocytes (CBC) 1.8 K/uL (0.7-4.9); Basophils % 1.6 % (0-1.3); Hematocrit 40.1 % (36.0-45.0); Lymphocytes % 38.4 % (15.3-44.8); MPV 10.9 fL (7.6-11.3); RBC Red Blood Cell Count 4.15 M/uL (3.86-4.86)
[2021-02-16 04:49] LABS: CKMB Creatine Kinase MB 1.3 ng/mL (0.3-3.6); Troponin I 0.19 ng/mL (0.0-0.045)
[2021-02-16 04:54] LABS: Bilirubin Total 1.4 mg/dL (0.2-1.0); Magnesium 2.2 mg/dL (1.8-2.4); Potassium 3.4 mmol/L (3.5-5.1); Protein, Total 6.1 g/dL (6.4-8.2); Thyroid Stimulating Hormone 1.15 uIU/mL (0.360-3.740)
[2021-02-16] MEDS: SOTALOL HCL 80 MG TAB PO SCH ×2 (06:50→17:13)
[2021-02-16 07:05] VITALS: BMI 25.6
--- NOTE | 2021-02-16 07:23 | P.PN ---
Subjective Date of Service: 02/16/21 Primary Care Provider: Dr. Campos(I am covering for him) Chief Complaint: SOB, CP Subjective: Improving, Doing well Physical Examination - Vital Signs Temperature: 98 F Blood Pressure: 103/75 Pulse: 99 Respirations: 20 Pulse Ox (%): 93 - Studies Laboratory Data (last 24 hrs) 02/15/21 11:15: PT 17.9 H, INR 1.55 02/15/21 11:15: WBC 7.40, Hgb 14.7, Hct 44.0, Plt Count 153 02/15/21 11:15: Sodium 138, Potassium 3.9, BUN 22 H, Creatinine 0.69, Glucose 101, Magnesium 2.2, Total Bilirubin 2.2 H, AST 95 H, ALT 165 H, Alkaline Phosphatase 138 H Assessment & Plan Discharge Plan: Home Plan to discharge in: 24 Hours Physician Review Additional Text: Physical exam: Patient alert, cooperative. No significant distress. Currently on 3 L per nasal cannula. Heart: AFib rate controlled Lungs: Clear to auscultation Abdomen: Soft nontender nondistended Extremities: Good range of motion. No focal deficits. No edema noted. Impression: Chest pain, dyspnea secondary to acute on chronic diastolic CHF Atrial fibrillation on chronic anti Coagulation therapy with RVR Liver function likely related to CHF Elevated troponin and elevated BNP likely ischemic demand related to CHF Depression with anxiety Plan: Chest pain, dyspnea secondary to acute on chronic diastolic CHF: Patient has done well with diuresis. Will transition to Lasix 40 mg daily. Teach on 1500 cc per day fluid restriction and low-salt diet. AFib now rate controlled. Continue Betapace 80 mg 1 pill twice daily. Patient takes Eliquis 2.5 mg 1 pill twice daily. Will see how patient does this morning. Patient will require home oxygen at discharge. If doing well will consider discharge later today with home oxygen. Patient will need a continue with a 1500 cc per day fluid restriction and low-salt diet. Patient will need to monitor her weight daily. Will recommend for the patient to follow up with cardiology for follow up. Patient will need echocardiogram as well. Case discussed with patient's PCP-Dr. Campos. She will need a follow up with him within 1 week. Atrial fibrillation on chronic anti Coagulation therapy with RVR: Rate controlled. Continue Betapace 80 mg 1 pill twice daily. Cardiology consulted. Cardiology recommended no further recommendation or adjustment in medication. Continue with Eliquis 2.5 mg daily. Liver function likely related to CHF: This has improved with diuresis. Hepatitis panel pending at discharge. This can be followed up with her PCP. Elevated troponin and elevated BNP likely ischemic demand related to CHF: Troponin improved. Continue with above plan of care. Cardiology recommends no intervention at this time. Patient should follow up with cardiology as an outpatient for echocardiogram and cardiac evaluation to be done as an outpatient.. Depression with anxiety: Continue home medication Time Spent Managing Pts Care (In Minutes): 55
--- NOTE | 2021-02-16 08:08 | RAD REPORT ---
EXAM DESCRIPTION: [place] Pa And Lat (2 Views)02/16/2021 6:45 am CLINICAL HISTORY: Shortness breath COMPARISON: February 15 2021 FINDINGS: Bilateral pulmonary opacities have partially resolved. Heart remains enlarged. Mild compre ssion deformities involve several thoracic likely related to osteoporosis. They probably are old IMPRESSION: Partial resolution in CHF
[2021-02-16] MEDS: FOLIC ACID 1 MG TABLET PO SCH (08:12)
[2021-02-16] MEDS: POTASSIUM CL SA 10 MEQ TAB PO ONE (08:12)
[2021-02-16] MEDS: FUROSEMIDE 20 MG/ 2ML VIAL IV SCH ×2 (08:12→17:00)
[2021-02-16] MEDS ORDERED: APIXABAN 2.5 MG TABLET PO SCH ×2 (09:00→21:00)
[2021-02-16] MEDS: PARoxetine HCL 10 MG TAB PO SCH (21:52)
[2021-02-16] MEDS: APIXABAN 2.5 MG TABLET PO SCH (21:53)
[2021-02-17 05:58] LABS: Absolute Lymphocytes (CBC) 1.6 K/uL (0.7-4.9); Basophils % 1.5 % (0-1.3); Hematocrit 41.4 % (36.0-45.0); Lymphocytes % 35.3 % (15.3-44.8); MPV 10.3 fL (7.6-11.3); RBC Red Blood Cell Count 4.25 M/uL (3.86-4.86)
[2021-02-17] MEDS: SOTALOL HCL 80 MG TAB PO SCH (06:00)
[2021-02-17 06:21] LABS: Magnesium 2.4 mg/dL (1.8-2.4); Potassium 3.5 mmol/L (3.5-5.1); Protein, Total 6.2 g/dL (6.4-8.2)
[2021-02-17] MEDS: APIXABAN 2.5 MG TABLET PO SCH ×2 (08:41→21:00)
[2021-02-17] MEDS: FOLIC ACID 1 MG TABLET PO SCH (08:42)
[2021-02-17] MEDS: FUROSEMIDE 20 MG/ 2ML VIAL IV SCH ×2 (08:45→17:37)
[2021-02-17] MEDS ORDERED: REGADENOSON 0.4 MG/5 ML SYR IV ONE (09:08)
--- NOTE | 2021-02-17 11:55 | RAD REPORT ---
EXAM DESCRIPTION: NM - Rest Stress Cardiac Imaging - 02/17/2021 11:49 am CLINICAL HISTORY: CP Chest pain. COMPARISON: No comparisons TECHNIQUE: The patient was administered approximately 10mCi of Tc 99m Sestamibi prior to resting SPE CT imaging of the heart. The patient was then administered approximately 30 mCi of Tc 99m Sestamibi f ollowing exercise or pharmacologic stress. Multiplanar SPECT images were reviewed. FINDINGS: No stress induced ischemic defect is seen to suggest stress induced ischemia. No fixed def ect is seen to suggest hibernating myocardium or scarred myocardium. The end diastolic volume is 76 ml, the end systolic volume is 46 ml, and the ejection fraction is 39 %. IMPRESSION: No stress induced ischemia.
[2021-02-17] MEDS ORDERED: POTASSIUM CL SA 10 MEQ TAB PO ONE (14:00)
[2021-02-17] MEDS ORDERED: AMIODARONE HCL 150 MG in D5W 100 ML IV STA (15:46)
[2021-02-17] MEDS ORDERED: AMIODARONE HCL 450 MG in D5W 241 ML IV SCH (16:00)
[2021-02-17] MEDS ORDERED: FUROSEMIDE 20 MG/ 2ML VIAL ONE (17:53)
[2021-02-17] MEDS ORDERED: APIXABAN 5 MG TABLET ONE (21:51)
[2021-02-17] MEDS: PARoxetine HCL 10 MG TAB PO SCH (21:53)
[2021-02-17] MEDS ORDERED: APIXABAN 2.5 MG TABLET ONE (22:00)
--- NOTE | 2021-02-17 22:31 | CON ---
Date of Consultation: 02/16/2021 Reason For Consultation: Chest pain and shortness of breath. History Of Present Illness: An 80-year-old female with history of atrial fibrillation on anticoagula tion, congestive heart failure, and depression who presented to the emergency room with worsening chemo rtness of breath, slightly hypoxic and chest discomfort, generally weak with palpitations. No nausea , vomiting, or diarrhea. No dysuria, polyuria or urinary urgency. In the ER, she was found to be in atrial fibrillation. Heart rate is 120. Given IV metoprolol with no significant improvement and tr oponin was borderline elevated. Past Medical History: As outlined above in HPI. Medications: Refer to reconciliation sheet for detailed list. Allergies: REVIEWED. Family History: No premature coronary artery disease or cancer. Social History: Does not smoke or drink. Does not use any drugs. Review of Systems: All systems reviewed and they were negative except what mentioned in the HPI. Physical Examination: Vital Signs: Reviewed. Head and Neck: Pupils are equal, reactive to light. Intact eye movements. No JVD. No cervical lym phadenopathy. Neck: Supple. Thyroid is not enlarged. Lungs: Clear to auscultation with no rhonchi, wheezing or crackles. No accessory muscle use. Heart: Irregularly irregular. No extra sounds. Abdomen: Soft, nontender. Bowel sounds positive. No organomegaly. No masses or hernia. No rigidi ty or rebound. Extremities: No clubbing, cyanosis. Intact pulses. Skin: No rash. Neurologic: Alert, awake, oriented x3. No acute focal deficits appreciated. Lymph Nodes: No cervical or inguinal lymphadenopathy. Investigations: Hemoglobin is 14.7, creatinine 0.69. Troponin was 0.22. Assessment And Recommendation: 1.Congestive heart failure exacerbation. Recommend IV diuretics with Lasix 40 mg q.12 hours. Elisabethas e obtain echocardiogram and trend troponins. 2.Atrial fibrillation with rapid ventricular response. We will increase metoprolol for better heart rate control and obtain echocardiogram to further evaluate the heart function and continue Eliquis f or anticoagulation. If rate does not get well controlled, we will recommend to load with IV amiodaro ne in an attempt for rate and/or rhythm control and if the patient shows a low ejection fraction, the n she might require NILES cardioversion, if she does not convert on amiodarone. 3.Elevated troponin with chest pain suggestive of non-ST elevation myocardial infarction. Please co ntinue to trend troponin. Start on aspirin and metoprolol. Obtain echocardiogram and obtain a nucle ar stress test to further evaluate for a possible ischemia. This is probably demand, leak of robel green, however, due to the chest pain, I will recommend a stress test. SR/MODL Voice ID: [id number] Report ID: [id number]
--- NOTE | 2021-02-17 22:40 | PN ---
Date of Progress Note: 02/17/2021 Subjective: Patient is seen by bedside. She is asymptomatic today. However, she continues to run a fast heart rate. On echo, she has moderately depressed systolic function. Denies having any chest pain. No nausea, vomiting, diarrhea. Review of Systems: All systems reviewed. They were negative except for mentioned above. Physical Examination: Vital Signs: Reviewed. Heart rate is running between 110 to 125. Head and Neck: Pupils are equal, reactive to light. Intact eye movements. No JVD. No cervical lym phadenopathy. Neck: Supple. Thyroid is not enlarged. Lungs: Clear to auscultation bilaterally. No rhonchi, rales, or crackles. No accessory muscle use. Heart: Irregularly irregular. No extra sounds. Abdomen: Soft, nontender. Bowel sounds positive. No organomegaly. No masses or hernia. No rigidi ty or rebound. Extremities: No edema, clubbing, cyanosis. Intact pulses. Skin: No rashes. Neurologic: Alert, awake, oriented x3. No acute focal deficits appreciated. Investigations: Labs were reviewed. Nuclear stress test was negative for active ischemia. Echo chemo wed EF of 30 to 35% with global hypokinesis. Assessment And Recommendation: 1.Atrial fibrillation with rapid ventricular response. Recommend to load with IV amiodarone 150 mg over 10 minutes and then 1 mg/minute for 6 hours and then 0.5 mg/minute for remainder of 16 hours. C ontinue metoprolol 25 mg twice a day and adjust the dose as the blood pressure allows. Continue Eliq uis. The patient has skipped taking the Eliquis multiple times, so cardioversion will not be an opti on at this point unless it is a NILES guided. 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 2.Systolic congestive heart failure with negative stress test. 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 Plan as outlined above. Also, if blood pr essure allows, low-dose ANAHI inhibitor is recommended. SR/MODL Voice ID: [id number] Report ID: [id number]
--- NOTE | 2021-02-18 01:20 | PN ---
Subjective: Ms. Simon is doing well. She denies any complaint of chest pain, nausea, vomiting. Physical Examination: Vital Signs: Blood pressure 130/80, pulse has been as high as 130 today, so I talked to Dr. Anna arechiga nd the only option we have at this point is amiodarone IV and discontinue Betapace. This will be don e in ICU for a couple of days. Assessment And Plan: The patient could not go home because of her atrial fibrillation with RVR and m ild hypotension. Cardioversion could not be done because the patient has not been compliant with her anticoagulation. She does not take a full dose of anticoagulation. Ideally, she should be on Eliqu is 5 mg p.o. b.i.d., but she refuses to do so, wants to take 2.5 mg twice a day as 5 mg gives her epi staxis, and if she does not have enough anticoagulation for at least 6 weeks, cardioversion can resul t into a stroke and it is unsafe for her at this point. We will see if amiodarone works and in 24-48 hours, the patient might be able to go home if amiodarone stabilizes her heart rate. RVD/MODL Voice ID: [id number] Report ID: [id number]
[2021-02-18] MEDS: AMIODARONE HCL 200 MG TAB PO SCH ×3 (05:56→20:54)
[2021-02-18] MEDS ORDERED: AMIODARONE HCL 200 MG TAB ONE ×2 (06:13→21:06)
--- NOTE | 2021-02-18 09:04 | ECHO ---
HEIGHT: 5 ft 5 in WEIGHT: 156 lb 3.2 oz DATE OF STUDY: 02/17/[address]: Ranjeet Sullivan DO 2-DIMENSIONAL: YES M.MODE: YES DOPPLER: YES COLOR FLOW: YES TDS: NO PORTABLE: NO DEFINITY: NO BUBBLE STUDY: NO DIAGNOSIS: ACUTE ON CHRONIC CONGESTIVE HEART FAILURE, ATRIAL FIBRILLATION CARDIAC HISTORY: CATHERIZATION: NO SURGERY: NO PROSTHETIC VALVE: NO PACEMAKER: NO MEASUREMENTS (cm) DIASTOLIC (NORMALS) SYSTOLIC (NORMALS) IVSd 1.0 (0.6-1.2) LA Diam 3.8 (1.9-4.0) LVEF 33% LVIDd 3.3 (3.5-5.7) LVIDs 2.8 (2.0-3.5) %FS 15% LVPWd 1.0 (0.6-1.2) Ao Diam (2.0-3.7) 2 DIMENSIONAL ASSESSMENT: RIGHT ATRIUM: ENLARGED LEFT ATRIUM: ENLARGED RIGHT VENTRICLE: NORMAL LEFT VENTRICLE: DEPRESSED TRICUSPID VALVE: MITRAL VALVE: PULMONIC VALVE: NOT SEEN AORTIC VALVE: PERICARDIAL EFFUSION: NONE AORTIC ROOT: NORMAL LEFT VENTRICULAR WALL MOTION: MODERATE GLOBAL HYPOKINESIS. DOPPLER/COLOR FLOW: SEE BELOW. COMMENTS: MODERATELY DEPRESSED LEFT VENTRICULAR EJECTION FRACTION 30-35%. MODERATE GLOBAL HYPOKINESIS. MODERATE MITRAL REGURGITATION. MILD TRICUSPID AND AORTIC REGURGITATION. BIATRIAL ENLARGEMENT. TECHNOLOGIST: Chiara SLOAN
--- NOTE | 2021-02-18 09:08 | TREADPHA ---
DX: CHEST PAIN, SHORTNESS OF BREATH Date of Study: 02/17/2021 Ht: 5' 5 " Wt: 156 lb 3.2 oz Consulting Physician: BRIAN MEDICATIONS: ELIQUIS, LASIX, PAXIL, BETAPACE HISTORY: HYPERTENSION, ATRIAL FIBRILLATION PHYSICIAL EXAMINATION: RESTING B.P.: 111/83 RESTING H.R.: 110 RESTING EKG: ATRIAL FIBRILLATION PROTOCOL: LEXISCAN EXERCISE TIME: 3:30 B.P. AT PEAK STRESS: 125/80 IMPRESSION: LEXISCAN INJECTED. CARDIOLITE INJECTED PER PROTOCOL. SEE NUCLEAR MEDICINE REPORT. NO SUPRAVENTRICULAR TACHYCARDIA. NO VENTRICULAR TACHYCARDIA. NO CHEST PAIN. NO ARRHYTHMIAS NOTED. NO EKG CHANGES WITH LEXISCAN.
[2021-02-18] MEDS ORDERED: APIXABAN 5 MG TABLET ONE (09:25)
[2021-02-18] MEDS ORDERED: FUROSEMIDE 20 MG/ 2ML VIAL ONE ×2 (09:25→17:30)
[2021-02-18] MEDS ORDERED: FOLIC ACID 1 MG TABLET ONE (09:25)
--- NOTE | 2021-02-18 09:41 | PN ---
Date of Progress Note: 02/18/2021 Subjective: Ms. Simon is an 80-year-old. She was admitted with acute on chronic diastolic congesti ve heart failure, has had atrial fibrillation with rapid ventricular response. Last heart rate was a bout a 100 and she is not having any symptoms from it, has been on IV amiodarone, and she remained in atrial fibrillation. Has a known ejection fraction of 39%. Had a negative stress test yesterday fo r ischemia. She is on amiodarone IV, Eliquis, and Lasix. I am comfortable switching p.o. amiodarone 400 b.i.d. Continue the Eliquis and give her amiodarone 400 b.i.d. for a week after that , 200 daily in the next week or 2. We will consider direct current cardioversion. I will discuss the case further with Dr. Campos. Once we switch her to p.o. amnio, I think she can go home later on today. EMANUEL/KAI Voice ID: [id number] Report ID: [id number]
[2021-02-18] MEDS: FOLIC ACID 1 MG TABLET PO SCH (09:45)
[2021-02-18] MEDS: FUROSEMIDE 20 MG/ 2ML VIAL IV SCH ×2 (09:45→17:40)
[2021-02-18] MEDS: APIXABAN 2.5 MG TABLET PO SCH ×2 (11:12→20:53)
[2021-02-18 18:51] LABS: HBsAG Nonreactive (Nonreactive)
[2021-02-18] MEDS ORDERED: POTASSIUM CL SA 10 MEQ TAB PO ONE ×2 (20:15→21:08)
[2021-02-18] MEDS: PARoxetine HCL 10 MG TAB PO SCH (20:54)
--- NOTE | 2021-02-18 21:44 | P.PN ---
Subjective Date of Service: 02/18/21 Chief Complaint: SOB, CP Subjective: Improving ELIUD IS DOING GOOD. SHE HAS NO SYMPTOMS. SHE TOLERATES AMIODARONE WELL. SHE IS OFF BETAPACE NOW IT DID NOT WORK. SHE WILL BE ABLE TO GO HOME IN AM. Review of Systems 10-point ROS is otherwise unremarkable Physical Examination - Vital Signs Temperature: 97.0 F Blood Pressure: 121/80 Pulse: 106 Respirations: 24 Pulse Ox (%): 96 - Physical Exam General: Alert, In no apparent distress HEENT: Atraumatic, PERRLA, EOMI Neck: Supple, JVD not distended Respiratory: Clear to auscultation bilaterally, Normal air movement Cardiovascular: Irregular heart rate/rhythm Gastrointestinal: Normal bowel sounds, No tenderness Musculoskeletal: No tenderness Integumentary: No rashes Neurological: Normal speech, Normal tone, Normal affect Lymphatics: No axilla or inguinal lymphadenopathy - Studies Medications List Reviewed: Yes Assessment And Plan - Current Problems (Diagnosis) (1) CHF (congestive heart failure) Current Visit: No Status: Acute Plan: MILD SEC TO A FIB. AGREE WITH LASIX AND KCL ECHO DONE. Qualifiers: Heart failure type: diastolic Heart failure chronicity: unspecified Qualified Code(s): I50.30 - Unspecified diastolic (congestive) heart failure (2) Persistent atrial fibrillation Current Visit: No Status: Chronic Plan: AMIODARONE RX CONTINUE ANTICOAGULATION. Physician Review Additional Text: Physical exam: Patient alert, cooperative. No significant distress. Currently on 3 L per nasal cannula. Heart: AFib rate controlled Lungs: Clear to auscultation Abdomen: Soft nontender nondistended Extremities: Good range of motion. No focal deficits. No edema noted. Impression: Chest pain, dyspnea secondary to acute on chronic diastolic CHF Atrial fibrillation on chronic anti Coagulation therapy with RVR Liver function likely related to CHF Elevated troponin and elevated BNP likely ischemic demand related to CHF Depression with anxiety Plan: Chest pain, dyspnea secondary to acute on chronic diastolic CHF: Patient has done well with diuresis. Will transition to Lasix 40 mg daily. Teach on 1500 cc per day fluid restriction and low-salt diet. AFib now rate controlled. Continue Betapace 80 mg 1 pill twice daily. Patient takes Eliquis 2.5 mg 1 pill twice daily. Will see how patient does this morning. Patient will require home oxygen at discharge. If doing well will consider discharge later today with home oxygen. Patient will need a continue with a 1500 cc per day fluid restriction and low-salt diet. Patient will need to monitor her weight daily. Will recommend for the patient to follow up with cardiology for follow up. Patient will need echocardiogram as well. Case discussed with patient's PCP-Dr. Campos. She will need a follow up with him within 1 week. Atrial fibrillation on chronic anti Coagulation therapy with RVR: Rate controlled. Continue Betapace 80 mg 1 pill twice daily. Cardiology consulted. Cardiology recommended no further recommendation or adjustment in medication. Continue with Eliquis 2.5 mg daily. Liver function likely related to CHF: This has improved with diuresis. Hepatitis panel pending at discharge. This can be followed up with her PCP. Elevated troponin and elevated BNP likely ischemic demand related to CHF: Troponin improved. Continue with above plan of care. Cardiology recommends no intervention at this time. Patient should follow up with cardiology as an outpatient for echocardiogram and cardiac evaluation to be done as an outpatient.. Depression with anxiety: Continue home medication
[2021-02-19] MEDS ORDERED: FOLIC ACID 1 MG TABLET ONE (07:40)
[2021-02-19] MEDS ORDERED: APIXABAN 5 MG TABLET ONE (07:40)
[2021-02-19] MEDS ORDERED: AMIODARONE HCL 200 MG TAB ONE (07:40)
[2021-02-19] MEDS ORDERED: FUROSEMIDE 40 MG/4 ML VIAL ONE (07:42)
[2021-02-19] MEDS ORDERED: FUROSEMIDE 20 MG/ 2ML VIAL ONE (07:43)
[2021-02-19 07:54] VITALS: O2SAT 96
[2021-02-19 07:55] LABS: Potassium 4.1 mmol/L (3.5-5.1)
[2021-02-19] MEDS: FOLIC ACID 1 MG TABLET PO SCH (08:01)
[2021-02-19] MEDS: FUROSEMIDE 20 MG/ 2ML VIAL IV SCH (08:01)
[2021-02-19] MEDS: APIXABAN 2.5 MG TABLET PO SCH (08:01)
[2021-02-19] MEDS: AMIODARONE HCL 200 MG TAB PO SCH (08:01)
[2021-02-19 12:20] VITALS: BP 112/83; TEMP 97.8
--- NOTE | 2021-02-28 21:01 | P.DS ---
Admission Date: 02/15/21 Discharge Date: 02/28/21 Disposition: DC HOME/HOME HEALTH CARE Reason for Admission: SOB, CP - Problems (1) CHF (congestive heart failure) Status: Acute Qualifiers: Heart failure type: diastolic Heart failure chronicity: unspecified Qualified Code(s): I50.30 - Unspecified diastolic (congestive) heart failure (2) Persistent atrial fibrillation Status: Chronic Hospital Course: MS. ROSADO HAD RAPID A FIB AND TOOK A FEW DAYS TO CONTROL IT. B BLOCKERS DID NOT WORK. CARDIOVERSION DID NOT WORK AND SHE HAD TO BE PLACED ON IV AMIODARONE AND LATER ORAL TO DISCHARGE. SHE WILL CONTIN ELIUQIS. SHE WILL FU WITH DR. MORRISON. SHE IS STABLE TO DISCHARGE. Vital Signs/Physical Exam: Temp Pulse Resp BP Pulse Ox 97.8 F 112 H 16 112/83 100 02/19/21 11:00 02/19/21 11:00 02/19/21 11:00 02/19/21 11:00 02/19/21 11:00 Laboratory Data at Discharge: WBC 4.60 K/uL (4.3-10.9) 02/17/21 05:36 Hgb 14.0 g/dL (12.0-15.0) 02/17/21 05:36 Hct 41.4 % (36.0-45.0) 02/17/21 05:36 Plt Count 139 K/uL (152-406) L 02/17/21 05:36 PT 17.9 SECONDS (9.5-12.5) H 02/15/21 11:15 INR 1.55 02/15/21 11:15 Sodium 139 mmol/L (136-145) 02/19/21 07:25 Potassium 4.1 mmol/L (3.5-5.1) 02/19/21 07:25 BUN 24 mg/dL (7-18) H 02/19/21 07:25 Creatinine 0.69 mg/dL (0.55-1.3) 02/19/21 07:25 Glucose 99 mg/dL (74-106) 02/19/21 07:25 Magnesium 2.4 mg/dL (1.8-2.4) 02/17/21 05:36 Total Bilirubin 1.0 mg/dL (0.2-1.0) 02/17/21 05:36 AST 35 U/L (15-37) 02/17/21 05:36 ALT 94 U/L (12-78) H 02/17/21 05:36 Alkaline Phosphatase 100 U/L (45-117) 02/17/21 05:36 Troponin I 0.19 ng/mL (0.0-0.045) H 02/16/21 03:24 Triglycerides 86 mg/dL (<150) 02/16/21 03:24 Cholesterol 148 mg/dL (<200) 02/16/21 03:24 HDL Cholesterol 53 mg/dL (40-60) 02/16/21 03:24 Cholesterol/HDL Ratio 2.79 02/16/21 03:24 Home Medications: PARoxetine HCL [Paxil*] 1 tab PO BEDTIME 05/23/20 Potassium Chloride 10 meq PO BID 05/23/20 Furosemide 40 mg PO DAILY #90 tablet 08/25/20 Apixaban [Eliquis *] 1 tab PO BID 02/15/21 Amiodarone HCl [Cordarone*] 400 mg PO BID 7 Days #14 tab 02/19/21 New Medications: Amiodarone HCl [Cordarone*] 400 mg PO BID 7 Days #14 tab Followup: Jaleel Morrison MD [ACTIVE - CAN ADMIT] - 1 Week (Call for appointment) Tony Campos MD [Primary Care Provider] - 1 Week (call for appointment)
== END 2021-02-19 12:05 | disposition home health service (06) | DRG 281 ==
LOC: ER 10:37 → ERHOLD 14:30 → 2ND 15:40 → ERHOLD 02-17 15:55
PROVIDERS: ADMIT Family Medicine; ATTEND Internal Medicine
DX: I50.33 Acute on chronic diastolic (congestive) heart failure (principal); I21.4 Non-ST elevation (NSTEMI) myocardial infarction; I48.19 Other persistent atrial fibrillation; I42.9 Cardiomyopathy, unspecified; F41.8 Other specified anxiety disorders; R77.8 Other specified abnormalities of plasma proteins; Z79.01 Long term (current) use of anticoagulants; Z91.19 Patient's noncompliance with other medical treatment and regimen; Z79.899 Other long term (current) drug therapy; Z91.14 Patient's other noncompliance with medication regimen; Z20.822 Contact with and (suspected) exposure to COVID-19
CPT/HCPCS: 36415; 71045; 71046; 71275; 76705; 78452; 80048; 80053; 80061; 80074; 80076; 81003; 81015; 82550; 82553; 83735; 83880; 84439; 84443; 84484; 85025; 85379; 85610; 87086; 87088; 93005; 93017; 93306; 96372; 96374; 96375; 99285; A9500; J0282; J1940; J2785; J7060; Q9967; U0003

== ENCOUNTER 2021-03-18 06:13 | Day surgery (SDC) | payer OTHER ==
[2021-03-14 11:05] LABS: Hematocrit 48.3 % (36.0-45.0); Lymphocytes % 23.9 % (15.3-44.8); RBC Red Blood Cell Count 4.97 M/uL (3.86-4.86)
[2021-03-14 11:08] LABS: Protime INR 1.38
[2021-03-14 11:12] LABS: Potassium 4.1 mmol/L (3.5-5.1)
[2021-03-18] MEDS ORDERED: NA CHLORIDE 0.9% 500 ML ONE (07:08)
[2021-03-18] MEDS ORDERED: FLUMAZENIL 0.1 MG/ML (5 mL VIAL) IV ONE (07:08)
[2021-03-18] MEDS ORDERED: MIDAZOLAM HCL 2 MG/2 ML INJ ONE (07:08)
[2021-03-18 08:39] VITALS: TEMP 96.9
[2021-03-18 09:18] VITALS: BP 128/67; O2SAT 96
--- NOTE | 2021-03-18 15:57 | OP ---
Date of Procedure: 03/18/2021 Surgeon: Jaleel Morrison MD Powder Operator: Jeanne Whittington. Procedure: Direct current cardioversion. Indication: Atrial fibrillation. Procedure In Detail: Ms. Simon is an 80-year-old with recurrent atrial fibrillation, failed medical therapy, on antiarrhythmics, symptomatic. Brought to the recovery room today as an outpatient on for a cardioversion. Received a total of 5 mg of Versed, 1 shock with 200 and sh e converted to sinus rhythm. There were no complications. No blood loss. Total conscious sedation was 30 minutes. Final Diagnosis: Status post successful cardioversion from atrial fibrillation to sinus rhythm. She will continue her medical regimen. She will go home when she wakes up, see me in the office in t he next 2 weeks. EMANUEL/KAI Voice ID: [id number] Report ID: [id number]
--- NOTE | 2021-03-19 16:14 | EKG ---
Test Date: 2021-03-18 Test Time: 06:59:45 Hose Maker: MEASUREMENT RESULTS: Intervals: Rate: 66 DE: 204 QRSD: 82 QT: 490 QTc: 513 [place]: P: 37 DE: 204 QRS: -11 T: 7 INTERPRETIVE STATEMENTS: Sinus rhythm with marked sinus arrhythmia Possible Left atrial enlargement Anterior infarct, age undetermined Prolonged QT Abnormal ECG Compared to ECG 02/15/2021 09:56:33 Myocardial infarct finding now present Prolonged QT interval now present Atrial fibrillation no longer present Ventricular premature complex(es) no longer present Electronically Signed On 03-19-21 16:07:31 CDT by Jaleel Morrison
== END 2021-03-18 09:30 | disposition home or self-care (01) ==
LOC: CCL 06:13
DX: I48.0 Paroxysmal atrial fibrillation (principal); I11.0 Hypertensive heart disease with heart failure; I50.21 Acute systolic (congestive) heart failure; I27.21 Secondary pulmonary arterial hypertension; I27.20 Pulmonary hypertension, unspecified; F41.1 Generalized anxiety disorder; Z20.822 Contact with and (suspected) exposure to COVID-19
CPT/HCPCS: 85025; 80048; 36415; 85610; 85730; 92960; U0003; J2250; J7040; 93005

== ENCOUNTER 2022-12-30 07:48 | Day surgery (SDC) | payer OTHER ==
[2022-12-28 15:07] LABS: Absolute Lymphocytes (CBC) 1.5 K/uL (0.7-4.9); Hematocrit 44.7 % (36.0-45.0); Lymphocytes % 27.2 % (15.3-44.8); MCV 98.3 fL (80-100); MPV 9.7 fL (7.6-11.3); RBC Red Blood Cell Count 4.55 M/uL (3.86-4.86)
[2022-12-28 15:26] LABS: Potassium 3.9 mmol/L (3.5-5.1)
--- NOTE | 2022-12-28 15:33 | RAD REPORT ---
EXAM DESCRIPTION: [place] Pa And Lat (2 Views)12/28/2022 3:20 pm CLINICAL HISTORY: Preop for leg surgery COMPARISON: 2020 FINDINGS: The lungs appear clear of acute infiltrate. The heart is mildly enlarged. Calcified breast implants IMPRESSION: No acute abnormalities displayed
--- NOTE | 2022-12-29 16:57 | EKG ---
Test Date: 2022-12-28 Test Time: 14:41:09 Latexer: EFRAIN MEASUREMENT RESULTS: Intervals: Rate: 79 PA: 174 QRSD: 70 QT: 412 QTc: 472 [place]: P: 61 PA: 174 QRS: 14 T: 64 INTERPRETIVE STATEMENTS: Normal sinus rhythm Septal infarct, age undetermined Abnormal ECG Compared to ECG 03/18/2021 06:59:45 Sinus arrhythmia no longer present Prolonged QT interval no longer present Myocardial infarct finding still present Electronically Signed On 12-29-22 16:54:28 SHIP'S SURVEYOR by Josué Castillo
[2022-12-30] MEDS ORDERED: Ringers Lactate 1,000 ML IV ONE (08:10)
[2022-12-30] MEDS ORDERED: CEFAZOLIN SODIUM 1 GM/VIAL ONE (08:10)
[2022-12-30] MEDS ORDERED: BUPIVACAINE 0.5% PF 10 ML VIAL ONE (08:56)
[2022-12-30] MEDS ORDERED: propofoL 200 MG/20 ML VIAL IV ONE (09:36)
[2022-12-30] MEDS ORDERED: LIDOCAINE 2% MPF 5 ML VIAL ONE (09:37)
[2022-12-30] MEDS ORDERED: FENTANYL CITR 100 MCG/2 ML ONE (09:43)
[2022-12-30] MEDS ORDERED: EPHEDRINE SULF 50 MG/ML VIAL ONE (09:56)
[2022-12-30] MEDS ORDERED: ONDANSETRON 4 MG/2 ML VIAL ONE (09:56)
[2022-12-30 10:48] VITALS: O2SAT 100
--- NOTE | 2022-12-30 10:51 | P.OP ---
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 General anesthesia begun. Patient prepped and draped in the usual sterile fashion. Marcaine 0.5% infiltrated locally. 15 blade used to make approximately a 8 x 3 cm ellipse of skin incision around the raised ulcerated mass approximately 2.5 cm in diameter. Entire lesion excised labeled appropriately and sent to frozen section. 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 Wound irrigated and bleeding controlled cautery. Flaps created. 2-0 chromic used to reapproximate subcutaneous tissue. 3-0 nylon used to close skin. Sterile dressing applied. Patient awakened and taken to recovery room in good general condition. CC: Dr. Campos's office
[2022-12-30] MEDS ORDERED: HYDROCODONE/APAP 5/325 MG TAB PO PRN (10:53)
[2022-12-30] MEDS ORDERED: HYDROCODONE/APAP 5/325 MG TAB ONE (11:58)
[2022-12-30 12:12] VITALS: BP 144/76; TEMP 98
== END 2022-12-30 12:30 | disposition home or self-care (01) ==
LOC: OR 07:48
PROVIDERS: ATTEND Surgery
PROC: 0JBN0ZZ Excision of Right Lower Leg Subcutaneous Tissue and Fascia, Open Approach (ICD-10-PCS; principal; 2022-12-30 09:15)
DX: C44.702 Unspecified malignant neoplasm of skin of right lower limb, including hip (principal)
CPT/HCPCS: 11403; 93005; 85025; 80048; 36415; 88331; 88305; 71046; J2704; J2001; J3010; J7120; J2405; J0690